=== PATIENT | female | born 1935 | race Caucasian/White ===

== ENCOUNTER 2017-08-21 13:15 | Inpatient (IN) | payer OTHER ==
[~2017-08-21] VITALS: Ht 170.2 cm; Wt 54.1 kg
--- NOTE | 2017-08-21 13:42 | ED MVC/FALL/TRAUMA COMPLAINT ---
History of Present Illness General Chief Complaint: Fall Stated Complaint: FALL WITH RIGHT HIP PAIN Source: patient, EMS Exam Limitations: no limitations Vital Signs & Intake/Output Vital Signs & Intake/Output Vital Signs Date Time Temp Pulse Resp B/P B/P Pulse O2 O2 Flow FiO2 Mean Ox Delivery Rate 08/21 1338 97.8 74 18 172/96 94 Room Air Room Air Triage Note: PT BIBA FROM PLACE OF WORK AFTER TRIP AND FALL. EMS REPORTS THAT PT WAS AT WORK AND TRIPPED OVER SOME CORDS AND FELL TO HER RIGHT HIP AND ARM. PT WAS ASSISTED TO STANDING AND WALKED TO A CHAIR PRIOR TO EMS ARRIVING. DENIES HEAD STRIKE OR LOC. PT ARRIVES A&O, AGITATED, C/O / PAIN TO RIGHT HIP. NO VISIBLE SHORTENING OR ROTATION. +CMS TO EXTREMETY Triage Nurses Notes Reviewed? yes Onset: Abrupt Duration: minute(s): Timing: single episode today Severity: moderate Method of Injury: fall Loss of Consciousness: no loss of consciousness No Modifying Factors: none HPI: 82-year-old female comes into the emergency room with right hip pain after falling at work. Patient reports that she tripped over some wires and came down on her right hip. Pain since then. Unable to ambulate. Brought in for further evaluation. Declined any pain medication here. Denies hitting her head. Denies any injury anywhere else in her body. (Vernon Ribera) Allergies Coded Allergies: cefuroxime (From CEFTIN) (DIARRHEA 08/21/17) clarithromycin (DIARRHEA 08/21/17) Uncoded Allergies: ADHESIVES (RASH 05/29/14) CONTRAST DYE (VOMIT AND HIVES 05/29/14) Reconcile Medications Aspirin (Aspirin*) 81 MG TAB.CHEW 1 TAB PO DAILY HEART HEALTH (Reported) Cholecalciferol (Vitamin D3) 1,000 UNIT TABLET 1 TAB PO DAILY VITAMIN SUPPORT (Reported) Triamterene/Hydrochlorothiazid (Triamterene-Hctz 37.5-25 MG Tb) 37.5 MG-25 MG TABLET 1 TAB PO DAILY HEART (Reported) (Tatiana CERVANTES,Ye Gooden) Past History Medical History Any Pertinent Medical History? none Surgical History Surgical History: non-contributory Psychosocial History Tobacco Use: Current Daily Use Daily Tobacco Use Amount/Type: => 5 Cigarettes daily ETOH Use: denies use Illicit Drug Use: denies illicit drug use Family History Hx Contributory? No (Vernon Ribera) Review of Systems Review of Systems Constitutional: Reports: no symptoms. Eyes: Reports: no symptoms. Ears, Nose, Throat, Mouth: Reports: no symptoms. Respiratory: Reports: no symptoms. Cardiovascular: Reports: no symptoms. Gastrointestinal/Abdominal: Reports: no symptoms. Genitourinary: Reports: no symptoms. Musculoskeletal: Reports: see HPI. Skin: Reports: no symptoms. Neurological/Psychological: Reports: no symptoms. All Other Systems: Reviewed and Negative (Vernon Ribera) Physical Exam Physical Exam General Appearance: no apparent distress, alert, moderate distress, thin Head: atraumatic Eyes: Bilateral: normal appearance. Ears, Nose, Throat, Mouth: moist mucous membrane Neck: normal inspection Respiratory: no respiratory distress Extremities: hematoma to the right upper hip, pain with internal/external rotation of hip, right foot shows symptoms consistent with chronic vascular changes, erythema, slightly delayed cap refill, Neurologic/Psych: awake, alert, oriented x 3 Skin: intact Core Measures ACS in differential dx? No CVA/TIA Diagnosis No Sepsis Present: No Sepsis Focused Exam Completed? No (Vernon Ribera) Progress Differential Diagnosis: abd injury, ext injury, ICH, right intertrochanteric hip fracture, femoral neck fracture Diagnostic Imaging: Viewed by Me: Radiology Read. Discussed w/RAD: Radiology Read. Radiology Impression: PATIENT: ELLEN RDZ PRESENT AGE: 82 PATIENT ACCOUNT NO: [id number] : 33 LOCATION: [facility] ORDERING PHYSICIAN: Vernon AKBAR SERVICE DATE: 08/21/17 EXAM TYPE : RAD - XRY-CHEST XRAY, SINGLE VIEW EXAMINATION: XR PORTABLE CHEST CLINICAL INFORMATION: Preoperative COMPARISON: CT dated 01/16/2017 and radiograph dated TECHNIQUE: AP portable supine view of the chest FINDINGS: Marked chronic pulmonary changes of emphysema are present in both lungs. There is a calcified granuloma in the left midlung. Linear bands of pleural peripheral scarring are present in both upper lobes. No consolidation is identified. Lungs are hyperexpanded. Cardiac silhouette is within normal limits for technique. Calcific atherosclerosis is present in the thoracic area. Pulmonary vasculature is unremarkable. Bones are osteopenic. Degenerative disc disease is present in the thoracic spine. IMPRESSION: Pulmonary emphysema. No acute findings DICTATED BY: Geraldo Clemens MD DATE/TIME DICTATED:08/21/171534 STORE LOSS PREVENTION MANAGER: JOSE DATE/TIME TRANSCRIBED:08/21/171534 CONFIDENTIAL, DO NOT COPY WITHOUT APPROPRIATE AUTHORIZATION. <Electronically signed in Other Vendor System> SIGNED BY: Geraldo Clemens MD 08/21/17 1540, PATIENT: ELLEN RDZ PRESENT AGE: 82 PATIENT ACCOUNT NO: [id number] : 33 LOCATION: [facility] ORDERING PHYSICIAN: Vernon AKBAR SERVICE DATE: 08/21/17 EXAM TYPE: RAD - XRY-AP PELVIS; XRY-HIP 2-3 VIEWS, RIGHT EXAMINATION: XR RIGHT HIP XR PELVIS CLINICAL INFORMATION: Fall. Right hip pain. COMPARISON: CT dated 01/16/2007 TECHNIQUE: AP and crosstable lateral views of the right hip and an AP view of the pelvis. FINDINGS: An intertrochanteric fracture of the right proximal femur is associated with minimal apex anterior angulation and mild apex lateral angulation at the fracture site. Femoral head remains appropriately situated at the acetabulum. No additional fractures are identified. Bones are osteopenic. Right hip joint appears relatively well- preserved. An long stretch of arterial stents are present in the right common and superficial femoral artery distribution. Calcific atherosclerosis is present in the iliac and femoral arteries bilaterally. Left hip joint appears relatively well-preserved. There is degenerative disc disease in the lower lumbar spine. No additional fracture identified in the pelvis. IMPRESSION: Mildly angulated intertrochanteric fracture of the right proximal femur. Osteopenia. DICTATED BY: Geraldo Clemens MD DATE/TIME DICTATED:08/21/171531 STORE LOSS PREVENTION MANAGER:JOSE DATE/TIME TRANSCRIBED:08/21/171531 CONFIDENTIAL, DO NOT COPY WITHOUT APPROPRIATE AUTHORIZATION. <Electronically signed in Other Vendor System> SIGNED BY: Geraldo Clemens MD 08/21/17 153 Initial ED EKG: normal axis (82), normal sinus rhythm, rate (Vernon Ribera) Plan of Care: Orders Procedure Date/time Status Nothing by Mouth 08/22 B Active Patient Data 08/21 1629 Active Misc Message 08/21 1607 Active ED Holding Orders 08/21 1607 Active Admit to inpatient 08/21 1607 Active Vital Signs 08/21 1607 Active Code Status 08/21 1607 Active PARTIAL THROMBOPLASTIN TIME 08/21 1441 Complete PROTHROMBIN TIME 08/21 1441 Complete COMPREHENSIVE METABOLIC PANEL 08/21 1441 Complete CBC WITHOUT DIFFERENTIAL 08/21 1441 Complete EKG 08/21 1441 Active TYPE & SCREEN (NOT X-MATCH) 08/21 1441 Active Intake & Output 08/21 1350 Active Laboratory Tests 08/21/17 1511: Anion Gap 11, Estimated GFR 39 L, BUN/Creatinine Ratio 25.4 H, Glucose 109 H, Calcium 9.7, Total Bilirubin 1.2, AST 35, ALT 38, Alkaline Phosphatase 90, Total Protein 5.9 L, Albumin 3.7, Globulin 2.2, Albumin/Globulin Ratio 1.7, PT 12.2, INR 1.12, APTT 30, CBC w Diff NO MAN DIFF REQ, RBC 5.74 H, MCV 80.7 L, MCH 26.5 L, MCHC 32.8 L, RDW 20.2 H, MPV 8.3, Gran % 86.2 H, Lymphocytes % 5.6 L, Monocytes % 7.3, Eosinophils % 0.6, Basophils % 0.3, Absolute Granulocytes 10.7 H, Absolute Lymphocytes 0.7 L, Absolute Monocytes 0.9 H, Absolute Eosinophils 0.1, Absolute Basophils 0 (Tatiana CERVANTES,Ye Gooden) Departure Departure Disposition: STILL A PATIENT Condition: Stable Clinical Impression Primary Impression: Intertrochanteric fracture of right hip Referrals: Silvano Mcgee MD (PCP/Family) Departure Forms: Customer Survey General Discharge Information Admission Note Spoke With: Maggy Lawrence MD Documentation of Exam: Documentation of any treatments & extenuating circumstances including Concerns Regarding Discharge (functional status, medication knowledge or non-compliance, living conditions, etc.) that warrant an admission rather than observation: Patient will require IV pain control. Surgery. Nonweightbearing. Short-term rehabilitation. PT consult. (Vernon Ribera) PA/[employer] COUNSELOR Co-Sign Statement Statement: ED Attending supervision documentation- [X] I saw and evaluated the patient. I have also reviewed all the pertinent lab results and diagnostic results. I agree with the findings and the plan of care as documented in the PA's/[employer] COUNSELOR's documentation. Patient presents for evaluation of right hip pain status post fall. Physical examination reveals tenderness of the right hip with internal maxilla rotation, the right lower extremity is neurovascularly intact distally. [] I have reviewed the ED Record and agree with the PA's/[employer] GUID[employer] COUNSELOR's documentation. [] Additions or exceptions (if any) to the PAs/[employer] GUID[employer] COUNSELOR's note and plan are summarized below: [] (Tatiana CERVANTES,Ye Gooden)
[2017-08-21] MEDS ORDERED: ASPIRIN81 M4 PO (15:03)
[2017-08-21] MEDS ORDERED: TRIAMTERENE-HC1 EAC1 PO (15:03)
[2017-08-21] MEDS ORDERED: VITAMIN D31000 UNI2 PO (15:04)
[2017-08-21 15:33] LABS: ABSOLUTE BASOPHIL COUNT 0 /CUMM (0.0-0.2); ABSOLUTE EOSINOPHIL COUNT 0.1 /CUMM (0.0-0.7); ABSOLUTE GRANULOCYTE CT 10.7 /CUMM (1.4-6.5); ABSOLUTE LYMPH COUNT 0.7 /CUMM (1.2-3.4); ABSOLUTE MONOCYTE COUNT 0.9 /CUMM (0.10-0.60); BASOPHIL % 0.3 % (0.0-2.0); EOSINOPHIL % 0.6 % (0-5); HEMATOCRIT 46.3 % (37-47); MEAN CORPUSCULAR HGB 26.5 PG (27.0-31.0); MEAN CORPUSCULAR HGB CONC 32.8 G/DL (33.0-37.0); MEAN CORPUSCULAR VOLUME 80.7 FL (81.0-99.0); MEAN PLATELET VOLUME 8.3 FL (7.4-10.4); PLATELET COUNT 243 /CUMM (130-400); RBC DISTRIBUTION WIDTH 20.2 % (11.5-14.5); RED BLOOD CELL CT 5.74 /CUMM (4.20-5.40); WHITE BLOOD CELL COUNT 12.4 /CUMM (4.8-10.8)
--- NOTE | 2017-08-21 15:39 | RADIOLOGY REPORT ---
EXAMINATION: XR RIGHT HIP XR PELVIS CLINICAL INFORMATION: Fall. Right hip pain. COMPARISON: CT dated 01/16/2007 TECHNIQUE: AP and crosstable lateral views of the right hip and an AP view of the pelvis. FINDINGS: An intertrochanteric fracture of the right proximal femur is associated with minimal apex anterior angulation and mild apex lateral angulation at the fracture site. Femoral head remains appropriately situated at the acetabulum. No additional fractures are identified. Bones are osteopenic. Right hip joint appears relatively well-preserved. An long stretch of arterial stents are present in the right common and superficial femoral artery distribution. Calcific atherosclerosis is present in the iliac and femoral arteries bilaterally. Left hip joint appears relatively well-preserved. There is degenerative disc disease in the lower lumbar spine. No additional fracture identified in the pelvis. IMPRESSION: Mildly angulated intertrochanteric fracture of the right proximal femur. Osteopenia.
--- NOTE | 2017-08-21 15:40 | RADIOLOGY REPORT ---
EXAMINATION: XR PORTABLE CHEST CLINICAL INFORMATION: Preoperative COMPARISON: CT dated 01/16/2017 and radiograph dated 07/31/2006 TECHNIQUE: AP portable supine view of the chest FINDINGS: Marked chronic pulmonary changes of emphysema are present in both lungs. There is a calcified granuloma in the left midlung. Linear bands of pleural peripheral scarring are present in both upper lobes. No consolidation is identified. Lungs are hyperexpanded. Cardiac silhouette is within normal limits for technique. Calcific atherosclerosis is present in the thoracic area. Pulmonary vasculature is unremarkable. Bones are osteopenic. Degenerative disc disease is present in the thoracic spine. IMPRESSION: Pulmonary emphysema. No acute findings
[2017-08-21 15:41] LABS: GRANULOCYTE % 86.2 % (42.2-75.2)
[2017-08-21 15:54] LABS: PT 12.2 SEC (9.4-12.5); PTT 30 SEC (25-37)
--- NOTE | 2017-08-21 16:52 | History & Physical ---
Gulshan Gonzalez MD 08/21/17 9295: General Information and HPI MD Statement: I have seen and personally examined ELLEN RDZ and documented this H&P. The patient is a 82 year old F who presented with a patient stated chief complaint of fall and RLE pain. Source of Information: patient, old records Exam Limitations: no limitations History of Present Illness: 82 year old female with past medical history significant for 50+ pack years of smoking (current), severe pulmonary hypertension diagnosed on echocardiogram in 2010, emphysema, hypertension, and peripheral vascular disease on aspirin s/p right femoral stents who was brought in by ambulance after a mechanical fall at work. She reportedly tripped over some electrical cables on the floor. She reports falling onto her bottom and right side and elbow. She denied any head trauma or loss of consciousness. She tried to stand up but had excruciating pain in her proximal anterior right thigh. She is asking about discharge planning and wants to go home. She states her motivation for going home is that she has to take care of her handicapped son and dogs, although he reportedly works and is able to cook for himself. She otherwise has no complaints and review of systems in negative. She currently smokes 1/2-3/4 ppd but denies cough or exertional dyspnea. She is active and works on her feet, can walk for prolonged period of time on a flat surface carrying things without exertional dyspnea or chest pain but states she never has to go up more than three stairs but doesn't think she has any significant limitations in terms of exercise tolerance. In the ED, she had pelvic and hip x-rays demonstrating a right proximal angulated intertrochanteric femur fracture. She denied any pain meds. Orthopedic surgery was consulted from the ED and she was admitted to general medicine floor for a right femur fracture. Allergies/Medications Home Med list Aspirin (Aspirin*) 81 MG TAB.CHEW 1 TAB PO DAILY HEART HEALTH (Reported) Cholecalciferol (Vitamin D3) 1,000 UNIT TABLET 1 TAB PO DAILY VITAMIN SUPPORT (Reported) Triamterene/Hydrochlorothiazid (Triamterene-Hctz 37.5-25 MG Tb) 37.5 MG-25 MG TABLET 1 TAB PO DAILY HEART (Reported) Compliance With Home Meds: GOOD Past History Medical History Cardiovascular: hypertension, PVD Respiratory: COPD, emphysema, pulmonary hypertension Surgical History Surgical History: right femoral artery stents Past Family/Social History Family History Relations & Conditions if any *No pertinent family history Relation not specified Psychosocial History Smoking Status: Current Everyday Smoker ETOH Use: denies use Illicit Drug Use: denies illicit drug use Functional Ability ADLs Independent: dressing, eating, toileting, bathing. Ambulation: independent IADLs Independent: shopping, housework, finances, food prep, telephone, transportation , medication admin. Review of Systems Review of Systems Constitutional: Reports: no symptoms. EENTM: Reports: no symptoms. Cardiovascular: Reports: no symptoms. Respiratory: Reports: no symptoms. GI: Reports: no symptoms. Genitourinary: Reports: no symptoms. Musculoskeletal: Reports: no symptoms. Skin: Reports: no symptoms. Neurological/Psychological: Reports: no symptoms. Hematologic/Endocrine: Reports: no symptoms. Immunologic/Allergic: Reports: no symptoms. All Other Systems: Reviewed and Negative Exam & Diagnostic Data Last 24 Hrs of Vital Signs/I&O Vital Signs Date Time Temp Pulse Resp B/P B/P Pulse O2 O2 Flow FiO2 Mean Ox Delivery Rate 08/21 1910 98.0 101 20 124/74 91 Room Air 08/21 1739 97.5 92 18 139/73 94 Room Air Room Air 08/21 1338 97.8 74 18 172/96 94 Room Air Room Air Intake & Output 08/21 1600 08/21 0800 08/21 0000 Intake Total Output Total Balance Number 1 Bowel Movements Patient 49.895 kg Weight Weight Estimated Measurement Method Physical Exam General Appearance Alert, Oriented X3, Cooperative, No Acute Distress Cardiovascular Regular Rate, Normal S1, Normal S2, high pitched 2/6 murmur heard best LSB Lungs Clear to Auscultation, Normal Air Movement Abdomen Normal Bowel Sounds, Soft, No Tenderness, No Masses Extremities No Clubbing, No Cyanosis, No Edema, Normal Pulses, RLE shortened and externally rotated, tender to proximal thigh without visible ecchymosis and minimal swelling Last 24 Hrs of Labs/Jesus: Laboratory Tests 08/21/17 1511: Anion Gap 11, Estimated GFR 39 L, BUN/Creatinine Ratio 25.4 H, Glucose 109 H, Hemoglobin A1c Pending, Calcium 9.7, Total Bilirubin 1.2, AST 35, ALT 38, Alkaline Phosphatase 90, Total Protein 5.9 L, Albumin 3.7, Globulin 2.2, Albumin/Globulin Ratio 1.7, Triglycerides 219 H, Cholesterol 202 H, LDL Cholesterol, Calc 117, HDL Cholesterol 42, Cholesterol/HDL Ratio 5 H, PT 12.2, INR 1.12, APTT 30, CBC w Diff NO MAN DIFF REQ, RBC 5.74 H, MCV 80.7 L, MCH 26.5 L, MCHC 32.8 L, RDW 20.2 H, MPV 8.3, Gran % 86.2 H, Lymphocytes % 5.6 L, Monocytes % 7.3, Eosinophils % 0.6, Basophils % 0.3, Absolute Granulocytes 10.7 H, Absolute Lymphocytes 0.7 L, Absolute Monocytes 0.9 H, Absolute Eosinophils 0.1, Absolute Basophils 0 Microbiology 08/22 2035 URINE ROUT: Urine Culture - COLB Diagnostic Data EKG Results sinus rhythm with right bundle branch block CXR Results Marked chronic pulmonary changes of emphysema are present in both lungs. There is a calcified granuloma in the left midlung. Linear bands of pleural peripheral scarring are present in both upper lobes. No consolidation is identified. Lungs are hyperexpanded. Cardiac silhouette is within normal limits for technique. Calcific atherosclerosis is present in the thoracic area. Pulmonary vasculature is unremarkable. Bones are osteopenic. Degenerative disc disease is present in the thoracic spine. Other Results hip and pelvic x-ray An intertrochanteric fracture of the right proximal femur is associated with minimal apex anterior angulation and mild apex lateral angulation at the fracture site. Femoral head remains appropriately situated at the acetabulum. No additional fractures are identified. Bones are osteopenic. Right hip joint appears relatively well-preserved. An long stretch of arterial stents are present in the right common and superficial femoral artery distribution. Calcific atherosclerosis is present in the iliac and femoral arteries bilaterally. Left hip joint appears relatively well-preserved. There is degenerative disc disease in the lower lumbar spine. No additional fracture identified in the pelvis. Echocardiogram 2011 FINDINGS Left Ventricle Normal size left ventricle. Left ventricular wall thickness at upper limits of normal. Normal left ventricular ejection fraction visually estimated at >60 %. Abnormal relaxation filling pattern of the left ventricle for age (stage 1 diastolic dysfunction). Right Ventricle Mild right ventricular dilatation. Right Atrium Normal right atrial size. Left Atrium Normal left atrial size. Mitral Valve Mild thickening/calcification of the anterior mitral valve leaflet. Mild thickening/calcification of the posterior mitral valve leaflet. Mild mitral annular calcification. Mild mitral regurgitation. Aortic Valve Mild f ocal thickening of the aortic valve cusps. No aortic stenosis. No aortic regurgitation. Tricuspid Valve Tricuspid valve is normal in structure and function. Moderate tricuspid regurgitation. Right ventricular systolic pressure estimated to be elevated at >60 mmHg. Severe pulmonary hypertension. Pulmonic Valve Pulmonic valve not well visualized, grossly normal. Trace pulmonic regurgitation. Pericardium No pericardial or pleural effusion. Great Vessels Normal size aortic root. CONCLUSIONS Left ventricular wall thickness at upper limits of normal. Normal left ventricular ejection fraction visually estimated at >60 Abnormal relaxation filling pattern of the left ventricle for age (stage 1 diastolic dysfunction). Mild thickening/calcification of the anterior mitral valve leaflet. Mild thickening/calcification of the posterior mitral valve leaflet. Mild mitral annular calcification. Mild f ocal thickening of the aortic valve cusps. Moderate tricuspid regurgitation. Right ventricular systolic pressure estimated to be elevated at >60 mmHg. Severe pulmonary hypertension. Assessment/Plan Assessment: 82 year old female with past medical history significant for 50+ pack years of smoking (current), severe pulmonary hypertension diagnosed on echocardiogram in 2010, emphysema, hypertension, CKD Stage IIIA, and peripheral vascular disease on aspirin s/p right femoral stents who was brought in by ambulance after a mechanical fall at work and sustained a proximal right femur fracture. Right femur fracture: Tylenol prn for analgesia Orthopedic surgery consultation Cardiology evaluation for preoperative risk stratification RCRI of 0, low risk, reportedly normal exercise tolerance Type and screen No anemia, H+H 15.2/46.3, WBC 12.4 probably stress/reactive from trauma NPO after midnight, D5-1/2 NS @ 75cc/hr Pulmonary HTN: Likely secondary to smoking and emphysema Chest x-ray shows hyperinflation Echo 2010 Stage I diastolic dysfunction, LVEF >60%, Moderate tricuspid regurgitation. Right ventricular systolic pressure estimated to be elevated at >60mmHg. Severe pulmonary hypertension. Mild RV dilation Smoking cessation and nicotine replacement therapy HTN: Continue triamterene/HCTZ PVD with right femoral stents: Aspirin on hold Add atorvastatin NPO after midnight DVT ppx-heparin subcutaneous and ALPs Full code As Ranked By This Provider Problem List: 1. Intertrochanteric fracture of right hip Core Measures/Misc (11/26) Acute Coronary Syndrome ACS Diagnosis: No Congestive Heart Failure Congestive Heart Failure Diagnosis No Cerebrovascular Accident CVA/TIA Diagnosis: No VTE (View Protocol) VTE Risk Factors Age>40 No Mechanical VTE Prophylaxis d/t N/A MechProphylax Ordered No VTE Pharm Prophylaxis d/t NA PharmProphylax ordered Sepsis (View protocol) Sepsis Present: No If YES complete Sepsis Event Note If YES complete Sepsis Event Note Dionte Schaeffer MD 08/21/17 1736: General Information and HPI Allergies/Medications Allergies: Coded Allergies: adhesive (RASH 08/21/17) cefuroxime (From CEFTIN) (DIARRHEA 08/21/17) clarithromycin (DIARRHEA 08/21/17) Uncoded Allergies: CONTRAST DYE (VOMIT AND HIVES 05/29/14) Core Measures/Misc (11/26) Sepsis (View protocol) If YES complete Sepsis Event Note If YES complete Sepsis Event Note Resident Review Statement Other Findings: History of present illness 82-year-old woman with past medical history of severe pulmonary hypertension, hypertension, 50+ pack year tobacco use, emphysema, and peripheral vascular disease status post stenting brought in by ambulance after sustaining a mechanical fall. Patient reports she was walking in the ambrocio at work when she suddenly fell forward after tripping on some cables that were lying across the floor. She fell onto her right side landing on her "bottom" and right elbow when she immediately felt pain in her right hip. She got up immediately and was helped to a chair when EMS was contacted. She denies hitting her head or losing consciousness. Recently she states that she has mild pain to her right hip and is asking "how long will this take?" and if she can go home. She otherwise feels well and has no complaints other than mild pain to her right elbow where a small scrap is seen. Social history Patient reports smoking tobacco 1/2 - 1 ppd for 50+ years. She denies using alcohol. 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 She denies episodes of shortness of breath/chest pain at rest or with exertion. She does not know how many flights stairs she can climb up and sleeps with only one pillow behind her head at night. Review of systems She otherwise denies any headache, fever, chills, chest pain, palpitations, shortness breath, cough, nausea, vomiting, diarrhea, constipation, urinary complaints. Objective Vitals Temp 97.8, HR 74, RR 18, BP 172/96, O2 94% on room air Physical Exam -General: Well-developed, thin elderly woman in no acute distress -HEENT: NCAT, Deven, EOMI, anicteric sclera, moist mucous members -Neck: Supple, no JVP, trachea midline -Cardio: Normal S1/S2 without murmurs/gallops/rubs; regular rate and rhythm -Pulm: Scant left lower lobe crackles -Abdomen: Soft, nontender, nondistended, bowel sounds intact -Neuro: Awake and alert, cranial nerves II through XII grossly intact -Extremities: Mild right hip/thigh tenderness without deformity, hematoma, or overlying ecchymosis, normal pulses, no edema Labs / Imaging / Studies -CBC: WBC 12.4, hemoglobin 15.2, hematocrit 46.3, platelet 240 -BMP: Sodium 138, potassium 3.8, chloride 101, CO2 26, BUN 33, creatinine 1.3, anion gap 11, glucose 109 -LFT: Within normal limits -Misc: INR 1.12 -Pelvis / Right femur X-ray: mild angulated intertrochanteric fracture of proximal right femur -CXR: emphysema -EKG: NSR with RBBB and left atrial abnormality Assessment 82 year old woman with multiple medical problems significant for 50+ pack year tobacco use, emphysema, hypertension, and severe pulmonary hypertension on echo (2010) brought in by ambulance after a mechanical fall. Patient currently feels well and reports only mild pain to her right thigh and is in fact requesting to go home. Vital signs are significant for an elevated systolic blood pressure to 172. Physical exam demonstrates scant left lower lobe crackles, flat neck veins, no murmurs, no edema, and mild tenderness to right hip/thigh without deformity, hematoma, or ecchymosis. Labs including CBC, hepatic function panel, and serum chemistry are significant for WBC 12.4, BUN/ creatinine 33/1.3. Chest x-ray demonstrated emphysema, pelvis/right hip x-ray demonstrated a mildly angulated proximal right intertrochanteric fracture. EKG demonstrated normal sinus rhythm with right bundle branch block and left atrial abnormality. Clinically patient appears to have suffered a mechanical fall secondary to tripping over cables resulting in injury to her right femur without any associated head trauma or other injuries. She denies a history of any pulmonary disease or ongoing evaluation for her pulmonary hypertension which she was not aware of. She is active and is on her feet most of the day and capable of all ADLs/IADLs. She currently works and takes care of her adult son whom has special needs. She does not know how many flights of stairs she can climb but states that she can walk as far she wants. She denies having to stop to catch her breath or any episodes of chest pain. EKG demonstrates a right bundle branch block probably secondary to her severe pulmonary hypertension. Patient is to be admitted to the general medicine floor and kept n.p.o. overnight for possible surgical fixation of her right hip fracture tomorrow. Orthopedics and cardiology consults are to be placed for surgical evaluation and preoperative risk stratification respectively. Aspirin is to be held in anticipation of surgery and type and cross sent. Patient's calculated revised cardiac risk index score is 0 giving her a 0.4% chance of a major perioperative cardiovascular event. ASCVD cannot be calculated given her age however given her history of peripheral vascular disease she would benefit from a statin. Problem List -Right intertrochanteric femur fracture -Mechanical fall -Leukocytosis, most likely reactive -CKD -Hypertension -Emphysema -Severe pulmonary hypertension -Peripheral vascular disease status post stenting -Tobacco user, 1/2 - 1 ppd x 50 yrs Plan -Admit to general medicine -RCRI: 0, 0.4% chance of a perioperative cardiovascular event -Non-weight bearing for now -Monitor blood pressure -D5 1/2 NS @ 50 mL/hr while NPO -Nicotine 14 mg patch -Start atorvastatin 40 mg PO Daily -Continue triamterene/hydrochlorothiazide -Hold aspirin for now, restart post-operatively -Type & Screen -Check lipid panel, hbA1c -Consult with orthopedics for hip fracture -Consult with cardiology in AM for preoperative risk stratification -Pain control with acetaminophen -NPO overnight for OR in AM -DVT PPx with subcutaneous heparin -FULL CODE Maggy Lawrence MD 08/21/17 2326: Core Measures/Misc (11/26) Sepsis (View protocol) If YES complete Sepsis Event Note If YES complete Sepsis Event Note Attending MD Review Statement Attending Statement Attending MD Statement: examined this patient, discuss w/resident/PA/VOCATIONAL NURSE LVN, agreed w/resident/PA/VOCATIONAL NURSE LVN, reviewed EMR data (avail) Attending Assessment/Plan: 82F PMH 50+ pack years of smoking (current), severe pulmonary hypertension diagnosed on echocardiogram in 2010, emphysema, hypertension, and peripheral vascular disease on aspirin s/p right femoral stents presenting with mechanical fall at work and right hip pain. Tripped on some wires, no symptoms prior to or after fall, did not hit head or lose consciousness. Feels well now, able to move leg and only with mild pain that becomes severe with internal or external rotation. No other complaints. Very active and without exertional dyspnea or chest pain when walking. Imaging reveals right hip fracture. 1. Fall, initial 2. Closed right interotrochanteric non-displaced hip fracture 3. PVD 4. Severe pulmonary hypertension Plan - Admit to general medicine - Cardiology and orthopedic consults - Pain control - Continue home medications - DVT PPx
--- NOTE | 2017-08-21 17:53 | Cons- Orthopedic ---
General Information and HPI Consulting Request Date of Consult: 08/21/17 Requested By: Maggy Lawrence MD Reason for Consult: right intertroch fracture Source of Information: patient Exam Limitations: no limitations History of Present Illness: pt had a mechanical fall while at work today, states that she tripped over cords that were on the floor. She was unable to get up and walk so a ambulence was called and brought her to the [place] ED. Upon arrival she had a R hip x-ray which shows a right intertroch fracture. She has denied pain medication, states she is not in pain at rest. Denies paresthesias. She denies any other painful injuries, denies LOC, denies hitting her head Denies CP/ SOB Allergies/Medications Allergies: Coded Allergies: adhesive (RASH 08/21/17) cefuroxime (From CEFTIN) (DIARRHEA 08/21/17) clarithromycin (DIARRHEA 08/21/17) Uncoded Allergies: CONTRAST DYE (VOMIT AND HIVES 05/29/14) Home Med List: Aspirin (Aspirin*) 81 MG TAB.CHEW 1 TAB PO DAILY HEART HEALTH (Reported) Cholecalciferol (Vitamin D3) 1,000 UNIT TABLET 1 TAB PO DAILY VITAMIN SUPPORT (Reported) Triamterene/Hydrochlorothiazid (Triamterene-Hctz 37.5-25 MG Tb) 37.5 MG-25 MG TABLET 1 TAB PO DAILY HEART (Reported) Past History Medical History Cardiovascular: hypertension, PVD Surgical History Pertinent Surgical History: none Psychosocial History Smoking Status: Current Everyday Smoker ETOH Use: denies use Illicit Drug Use: denies illicit drug use Exam & Diagnostic Data Vital Signs and I&O Vital Signs Date Time Temp Pulse Resp B/P B/P Pulse O2 O2 Flow FiO2 Mean Ox Delivery Rate 08/21 1739 97.5 92 18 139/73 94 Room Air Room Air 08/21 1338 97.8 74 18 172/96 94 Room Air Room Air Intake & Output 08/21 1600 08/21 0800 08/21 0000 08/20 1600 08/20 0800 08/20 0000 Intake Total Output Total Balance Number 1 Bowel Movements Patient 110 lb Weight Weight Estimated Measurement Method Physical Exam: gen- NAD, AAx3 resp- clear cardiac-RRR abd- ND, +BS, soft NT EXT-- right hip tender with no ecchymosis, thigh is soft, distal sensory and motor function intact. right leg shortened and internally rotated. 2+ femoral pulse Last 24 Hours of Labs: Laboratory Tests 08/21 1511 Chemistry Sodium (137 - 145 mmol/L) 138 Potassium (3.5 - 5.1 mmol/L) 3.8 Chloride (98 - 107 mmol/L) 101 Carbon Dioxide (22 - 30 mmol/L) 26 Anion Gap (5 - 16) 11 BUN (7 - 17 mg/dL) 33 H Creatinine (0.5 - 1.0 mg/dL) 1.3 H Estimated GFR (>60 ml/min) 39 L BUN/Creatinine Ratio (7 - 25 %) 25.4 H Glucose (65 - 99 mg/dL) 109 H Calcium (8.4 - 10.2 mg/dL) 9.7 Total Bilirubin (0.2 - 1.3 mg/dL) 1.2 AST (14 - 36 U/L) 35 ALT (9 - 52 U/L) 38 Alkaline Phosphatase (<127 U/L) 90 Total Protein (6.3 - 8.2 g/dL) 5.9 L Albumin (3.5 - 5.0 g/dL) 3.7 Globulin (1.9 - 4.2 gm/dL) 2.2 Albumin/Globulin Ratio (1.1 - 2.2 %) 1.7 Coagulation PT (9.4 - 12.5 SEC) 12.2 INR (0.90 - 1.19) 1.12 APTT (25 - 37 SEC) 30 Hematology CBC w Diff NO MAN DIFF REQ WBC (4.8 - 10.8 /CUMM) 12.4 H RBC (4.20 - 5.40 /CUMM) 5.74 H Hgb (12.0 - 16.0 G/DL) 15.2 Hct (37 - 47 %) 46.3 MCV (81.0 - 99.0 FL) 80.7 L MCH (27.0 - 31.0 PG) 26.5 L MCHC (33.0 - 37.0 G/DL) 32.8 L RDW (11.5 - 14.5 %) 20.2 H Plt Count (130 - 400 /CUMM) 243 MPV (7.4 - 10.4 FL) 8.3 Gran % (42.2 - 75.2 %) 86.2 H Lymphocytes % (20.5 - 51.1 %) 5.6 L Monocytes % (1.7 - 9.3 %) 7.3 Eosinophils % (0 - 5 %) 0.6 Basophils % (0.0 - 2.0 %) 0.3 Absolute Granulocytes (1.4 - 6.5 /CUMM) 10.7 H Absolute Lymphocytes (1.2 - 3.4 /CUMM) 0.7 L Absolute Monocytes (0.10 - 0.60 /CUMM) 0.9 H Absolute Eosinophils (0.0 - 0.7 /CUMM) 0.1 Absolute Basophils (0.0 - 0.2 /CUMM) 0 Imaging Results: EXAM TYPE: RAD - XRY-AP PELVIS; XRY-HIP 2-3 VIEWS, RIGHT EXAMINATION: XR RIGHT HIP XR PELVIS CLINICAL INFORMATION: Fall. Right hip pain. COMPARISON: CT dated 01/16/2007 TECHNIQUE: AP and crosstable lateral views of the right hip and an AP view of the pelvis. FINDINGS: An intertrochanteric fracture of the right proximal femur is associated with minimal apex anterior angulation and mild apex lateral angulation at the fracture site. Femoral head remains appropriately situated at the acetabulum. No additional fractures are identified. Bones are osteopenic. Right hip joint appears relatively well-preserved. An long stretch of arterial stents are present in the right common and superficial femoral artery distribution. Calcific atherosclerosis is present in the iliac and femoral arteries bilaterally. Left hip joint appears relatively well-preserved. There is degenerative disc disease in the lower lumbar spine. No additional fracture identified in the pelvis. IMPRESSION: Mildly angulated intertrochanteric fracture of the right proximal femur. Osteopenia. DICTATED BY: Geraldo Clemens MD DATE/TIME DICTATED:08/21/171531 JINRIKSHA DRIVER:JOSE DATE/TIME TRANSCRIBED:08/21/171531 Assessment/Plan Assessment/Plan 82yo F SP fall resulting in R mildly angulated intertroch fracture. Currently stable Plan for OR tomorrow with Dr Nguyen pending medical clearence type and screen nicotine patch NPo after midnight hernandez IVF PRN pain meds dvt ppx- alps Consult Acknowledgment - Thank you for your consult request.
[2017-08-21 19:10] VITALS: BP 124/74
[2017-08-21 21:53] VITALS: BP 102/68
[2017-08-22 05:41] VITALS: BP 100/50
--- NOTE | 2017-08-22 07:31 | PN- Housestaff ---
Lisa CERVANTES,Gulshan 08/22/17 0731: Subjective Follow-up For: right femur fracture Subjective: patient is comfortable at rest, pain with movement afebrile with hernandez catheter npo awaiting surgery no new complaints Review of Systems Constitutional: Reports: see HPI. Objective Last 24 Hrs of Vital Signs/I&O Vital Signs Date Time Temp Pulse Resp B/P B/P Pulse O2 O2 Flow FiO2 Mean Ox Delivery Rate 08/22 0906 95 98/60 08/22 0800 Room Air 08/22 0541 97.6 90 18 100/50 93 Room Air 08/21 2153 97.7 97 18 102/68 91 Room Air 08/21 1910 98.0 101 20 124/74 91 Room Air 08/21 1739 97.5 92 18 139/73 94 Room Air Room Air 08/21 1338 97.8 74 18 172/96 94 Room Air Room Air Intake & Output 08/22 1600 08/22 0800 08/22 0000 Intake Total 300 80 Output Total 200 Balance 300 -120 Intake, IV 300 30 Intake, Oral 0 50 Output, Urine 200 Patient 56.472 kg 58.967 kg Weight Weight Bed scale Reported by Patient Measurement Method Physical Exam General Appearance: Alert, Oriented X3, Cooperative, No Acute Distress Cardiovascular: Regular Rate, Normal S1, Normal S2, 2/6 systolic murmur LLSB Lungs: Clear to Auscultation, Normal Air Movement Abdomen: Normal Bowel Sounds, Soft, No Tenderness, No Masses Extremities: No Clubbing, No Cyanosis, No Edema, RLE shortened and externally rotated Current Medications: Current Medications Sig/Hany Start time Last Medication Dose Route Stop Time Status Admin Acetaminophen 650 MG Q6P PRN 08/21 1830 AC 08/21 PO 2156 Atorvastatin Calcium 40 MG 1700 08/22 1700 AC PO Cholecalciferol 1,000 IU DAILY 08/22 0900 08/22 PO 0914 Dextrose/Sodium 1,000 ML Q20H 08/22 0000 AC 08/21 Chloride IV 08/22 1959 215 Heparin Sodium 5,000 UNIT Q8 08/21 2200 AC 08/21 (Porcine) SC 2152 Nicotine 0 .STK-MED ONE 08/21 1841 [place] TOP Nicotine 14 MG DAILY 08/21 1736 08/22 TOP 0910 Patient Medication 1 ED ONE ONE 08/22 1115 DC 08/22 Teaching ED 08/22 1116 1137 Triamterene/HCTZ 1 CAP DAILY 08/22 0900 AC PO Last 24 Hrs of Lab/Jesus Results Last 24 Hrs of Labs/Mics: Laboratory Tests 08/22/17 0714: Anion Gap 9, Estimated GFR 43 L, BUN/Creatinine Ratio 22.5, Magnesium 1.6, CBC w Diff NO MAN DIFF REQ, RBC 4.97, MCV 81.1, MCH 27.1, MCHC 33.4, RDW 20.4 H, MPV 9.1, Gran % 81.4 H, Lymphocytes % 7.9 L, Monocytes % 10.0 H, Eosinophils % 0.6, Basophils % 0.1, Absolute Granulocytes 8.7 H, Absolute Lymphocytes 0.8 L, Absolute Monocytes 1.1 H, Absolute Eosinophils 0.1, Absolute Basophils 0 08/21/17 1511: Anion Gap 11, Estimated GFR 39 L, BUN/Creatinine Ratio 25.4 H, Glucose 109 H, Hemoglobin A1c 5.2, Calcium 9.7, Total Bilirubin 1.2, AST 35, ALT 38, Alkaline Phosphatase 90, Total Protein 5.9 L, Albumin 3.7, Globulin 2.2, Albumin/ Globulin Ratio 1.7, Triglycerides 219 H, Cholesterol 202 H, LDL Cholesterol, Calc 117, HDL Cholesterol 42, Cholesterol/HDL Ratio 5 H, PT 12.2, INR 1.12, APTT 30, CBC w Diff NO MAN DIFF REQ, RBC 5.74 H, MCV 80.7 L, MCH 26.5 L, MCHC 32.8 L, RDW 20.2 H, MPV 8.3, Gran % 86.2 H, Lymphocytes % 5.6 L, Monocytes % 7.3, Eosinophils % 0.6, Basophils % 0.3, Absolute Granulocytes 10.7 H, Absolute Lymphocytes 0.7 L, Absolute Monocytes 0.9 H, Absolute Eosinophils 0.1, Absolute Basophils 0 Microbiology 08/21 2149 URINE ROUT: Urine Culture - RES Assessment/Plan Assessment: 82 year old female with past medical history significant for 50+ pack years of smoking (current), severe pulmonary hypertension diagnosed on echocardiogram in 2010, emphysema, hypertension, CKD Stage IIIA, and peripheral vascular disease on aspirin s/p right femoral stents who was brought in by ambulance after a mechanical fall at work and sustained a proximal right femur fracture. Right femur fracture: Tylenol prn for analgesia Orthopedic surgery consultation Cardiology evaluation for preoperative risk stratification Although RCRI of 0, patient is not very physically active, has comorbidites of PVD, CKD, severe pulmonary hypertension with TR and mild RV dilatation, has never been evaluated with stress testing, last echo 2010 and is at higher perioperative risk than RCRI calculated risk Follow up cardiology recommendations Check transthoracic echocardiogram Monitor post operative on telemetry for 24 hours and troponin checks Type and screen No anemia, H+H 15.2/46.3, WBC 12.4 probably stress/reactive from trauma NPO after midnight, D5-1/2 NS @ 75cc/hr Pulmonary HTN: Likely secondary to smoking and emphysema Chest x-ray shows hyperinflation Echo 2010 Stage I diastolic dysfunction, LVEF >60%, Moderate tricuspid regurgitation. Right ventricular systolic pressure estimated to be elevated at >60mmHg. Severe pulmonary hypertension. Mild RV dilation Smoking cessation and nicotine replacement therapy HTN: Triamterene/HCTZ was held this morning for SBP in the 90s PVD with right femoral stents: Aspirin on hold for OR Add atorvastatin NPO pending surgical repair of right femur fracture DVT ppx-heparin subcutaneous and ALPs Full code Problem List: 1. Intertrochanteric fracture of right hip Pain Ratin Pain Location: right thigh Pain Goal: Pain 4 or less Pain Plan: tylenol prn Tomorrow's Labs & Rationales: cbc, bep, troponin Nelson CERVANTES,Talon 08/22/17 1016: Attending Review Statement Attending Statement Attending Statement: examined this patient, discuss w/resident/PA/RADIO INTERFERENCE INVESTIGATOR, agreed w/resident/PA/RADIO INTERFERENCE INVESTIGATOR, reviewed EMR data (avail), discussed with nursing, discussed with case mgmt, amended to note Attending Assessment/Plan: Patient seen and examined. No issues overnight reported by nursing staff. Remains afebrile and hemodynamically stable. Resting comfortably and not in any acute distress. Reports that right hip pain is controlled with current regimen particularly at rest. She does admit to pain with activity. Denies any pre-existing history of chest pain at rest or with exertion dyspnea on exertion palpitations or leg swelling. She is able to carry out activities of daily living independently without need for assistance. Vital Signs Date Time Temp Pulse Resp B/P B/P Pulse O2 O2 Flow FiO2 Mean Ox Delivery Rate 08/22 0906 95 98/60 08/22 0541 97.6 90 18 100/50 93 Room Air 08/21 2153 97.7 97 18 102/68 91 Room Air 08/21 1910 98.0 101 20 124/74 91 Room Air 08/21 1739 97.5 92 18 139/73 94 Room Air Room Air 08/21 1338 97.8 74 18 172/96 94 Room Air Room Air General appearance: Well-developed and not in any acute distress. HEENT: Anicteric, no pallor, pupils equal and reactive. Neck: Supple with no jugular venous distention. Heart: S1-S2 regular with no audible murmur. Lungs: Adequate and symmetric air entry bilaterally with no added sounds. Abdomen: Nondistended with normal bowel sounds. Soft, nontender with no palpable masses. Extremities: No pedal edema. No cyanosis. Skin: Intact Problems: 1. Right hip fracture; status post mechanical fall. 2. Chronic stage I diastolic heart failure; not decompensated 3. Peripheral arterial disease 4. Chronic obstructive pulmonary disease 5. Hypertension 6. Chronic kidney disease stage III 7. Severe pulmonary hypertension 8. Moderate tricuspid regurgitation Plan: -Patient's underlying comorbidities do not put her a high risk for adverse cardiac events. There is no contraindication to the patient proceeded with the surgery planned for today. -She will need further cardiac workup for her underlying abnormal EKG and valvular heart disease. -Perioperatively will monitor volume status closely with input output, pulmonary examination and daily weights to avoid volume overload given her history of diastolic dysfunction. -Hold her diuretic therapy for now given her borderline blood pressure. May be resumed postoperatively Blood pressure remained stable. -Resume aspirin postoperatively once cleared by the cardiology service in view of her history of peripheral arterial disease. Continue statin therapy. -Bronchodilator therapy with albuterol every 6 hours [id number] postoperatively. -Patient should be referred to the pulmonology service for follow-up in the outpatient setting for pulmonary function testing and optimal management of her COPD as well as further workup of her pulmonary hypertension. with regards to her COPD pulmonary hypertension will suggest severe disease however patient does not give significant history of symptoms and is not on any long-acting ischemic agents or beta agonist.. She will benefit from outpatient PFTs. -Chemical DVT prophylaxis with Lovenox. -Monitor closely for post-op anemia. -PT evaluation post-op. -Continue current pain regimen.
[2017-08-22 08:13] LABS: ABSOLUTE BASOPHIL COUNT 0 /CUMM (0.0-0.2); ABSOLUTE EOSINOPHIL COUNT 0.1 /CUMM (0.0-0.7); ABSOLUTE LYMPH COUNT 0.8 /CUMM (1.2-3.4); ABSOLUTE MONOCYTE COUNT 1.1 /CUMM (0.10-0.60); BASOPHIL % 0.1 % (0.0-2.0)
[2017-08-22 08:34] LABS: ABSOLUTE GRANULOCYTE CT 8.7 /CUMM (1.4-6.5); EOSINOPHIL % 0.6 % (0-5); GRANULOCYTE % 81.4 % (42.2-75.2); MEAN CORPUSCULAR HGB 27.1 PG (27.0-31.0); MEAN CORPUSCULAR HGB CONC 33.4 G/DL (33.0-37.0); MEAN CORPUSCULAR VOLUME 81.1 FL (81.0-99.0); MEAN PLATELET VOLUME 9.1 FL (7.4-10.4); PLATELET COUNT 223 /CUMM (130-400); RBC DISTRIBUTION WIDTH 20.4 % (11.5-14.5); RED BLOOD CELL CT 4.97 /CUMM (4.20-5.40); WHITE BLOOD CELL COUNT 10.7 /CUMM (4.8-10.8)
[2017-08-22 08:39] LABS: HEMATOCRIT 40.3 % (37-47)
[2017-08-22 09:06] VITALS: BP 98/60
--- NOTE | 2017-08-22 12:06 | Cons- Cardiology ---
General Information and HPI Consulting Request Date of Consult: 08/22/17 Requested By: Maggy Lawrence MD Reason for Consult: Cardiac assessment preoperatively Source of Information: patient Exam Limitations: no limitations History of Present Illness: 82 year old female with past medical history significant for 50+ pack years of smoking (current), severe pulmonary hypertension diagnosed on echocardiogram in 2010, emphysema, hypertension, and peripheral vascular disease on aspirin s/p right femoral stents who was brought in by ambulance after a mechanical fall at work. She reportedly tripped over some electrical cables on the floor. She reports falling onto her bottom and right side and elbow. She denied any head trauma or loss of consciousness. She tried to stand up but had excruciating pain in her proximal anterior right thigh. She is asking about discharge planning and wants to go home. She states her motivation for going home is that she has to take care of her handicapped son and dogs, although he reportedly works and is able to cook for himself. She otherwise has no complaints and review of systems in negative. She currently smokes 1/2-3/4 ppd but denies cough or exertional dyspnea. She is active and works on her feet, can walk for prolonged period of time on a flat surface carrying things without exertional dyspnea or chest pain but states she never has to go up more than three stairs but doesn't think she has any significant limitations in terms of exercise tolerance. In the ED, she had pelvic and hip x-rays demonstrating a right proximal angulated intertrochanteric femur fracture. She denied any pain meds. Orthopedic surgery was consulted from the ED and she was admitted to general medicine floor for a right femur fracture. Allergies/Medications Allergies: Coded Allergies: adhesive (RASH 08/21/17) cefuroxime (From CEFTIN) (DIARRHEA 08/21/17) clarithromycin (DIARRHEA 08/21/17) Uncoded Allergies: CONTRAST DYE (VOMIT AND HIVES 05/29/14) Home Med List: Aspirin (Aspirin*) 81 MG TAB.CHEW 1 TAB PO DAILY HEART HEALTH (Reported) Cholecalciferol (Vitamin D3) 1,000 UNIT TABLET 1 TAB PO DAILY VITAMIN SUPPORT (Reported) Triamterene/Hydrochlorothiazid (Triamterene-Hctz 37.5-25 MG Tb) 37.5 MG-25 MG TABLET 1 TAB PO DAILY HEART (Reported) Current Medications: Current Medications Sig/Hany Start time Last Medication Dose Route Stop Time Status Admin Acetaminophen 650 MG Q6P PRN 08/21 1830 AC 08/21 PO 2156 Atorvastatin Calcium 40 MG 1700 08/22 1700 AC PO Cholecalciferol 1,000 IU DAILY 08/22 0900 AC 08/22 PO 0914 Dextrose/Sodium 1,000 ML Q20H 08/22 0000 AC 08/21 Chloride IV 08/22 1959 2153 Heparin Sodium 5,000 UNIT Q8 08/21 2200 AC 08/21 (Porcine) SC 2152 Nicotine 0 .STK-MED ONE 08/21 1841 [place] TOP Nicotine 14 MG DAILY 08/21 1736 08/22 TOP 0910 Patient Medication 1 ED ONE ONE 08/22 1115 DC 08/22 Teaching ED 08/22 1116 1137 Triamterene/HCTZ 1 CAP DAILY 08/22 0900 AC PO Past History Travel History Traveled to [place] past 21 day No Medical History Blood Transfusion Hx: No Neurological: NONE EENT: NONE Cardiovascular: hypertension, PVD Respiratory: COPD, emphysema, pulmonary hypertension Gastrointestinal: NONE Hepatic: NONE Musculoskeletal: osteoporosis Psychiatric: NONE Endocrine: NONE Blood Disorders: NONE Cancer(s): NONE 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 Home Smoking Status: Current Everyday Smoker ETOH Use: denies use Illicit Drug Use: denies illicit drug use Functional Ability ADLs Independent: dressing, eating, toileting, bathing. Ambulation: independent IADLs Independent: shopping, housework, finances, food prep, telephone, transportation , medication admin. Exam & Diagnostic Data Vital Signs and I&O Vital Signs Date Time Temp Pulse Resp B/P B/P Pulse O2 O2 Flow FiO2 Mean Ox Delivery Rate 08/22 0906 95 98/60 08/22 0800 Room Air 08/22 0541 97.6 90 18 100/50 93 Room Air 08/21 2153 97.7 97 18 102/68 91 Room Air 08/21 1910 98.0 101 20 124/74 91 Room Air 08/21 1739 97.5 92 18 139/73 94 Room Air Room Air 08/21 1338 97.8 74 18 172/96 94 Room Air Room Air Intake & Output 08/22 1600 08/22 0800 08/22 0000 08/21 1600 08/21 0800 08/21 0000 Intake Total 300 80 Output Total 200 Balance 300 -120 Intake, IV 300 30 Intake, Oral 0 50 Number 1 Bowel Movements Output, Urine 200 Patient 125 lb 130 lb 110 lb Weight Weight Bed scale Reported by Patient Estimated Measurement Method Physical Exam: General Appearance: well developed/nourished, thin elderly female, alert, awake, oriented Head: normal HEENT: Normal Neck: supple, JVP elevated 2-3 cm at 45, carotid upstrokes normal bilaterally, no masses or thyromegaly Respiratory: chest non-tender, diffuse bilateral rhonchi Cardiovascular: regular rate/rhythm, normal S1, S2, 2/6 systolic murmur left lower sternal border Abdomen: normal bowel sounds, soft, non-tender Extremities: normal inspection, no edema Vascular: Pulses are 2+ and equal bilaterally Neurologic: Grossly normal/nonfocal Labs/Jesus Results: Laboratory Tests 08/22 08/21 0714 1511 Chemistry Sodium (137 - 145 mmol/L) 138 138 Potassium (3.5 - 5.1 mmol/L) 3.7 3.8 Chloride (98 - 107 mmol/L) 105 101 Carbon Dioxide (22 - 30 mmol/L) 24 26 Anion Gap (5 - 16) 9 11 BUN (7 - 17 mg/dL) 27 H 33 H Creatinine (0.5 - 1.0 mg/dL) 1.2 H 1.3 H Estimated GFR (>60 ml/min) 43 L 39 L BUN/Creatinine Ratio (7 - 25 %) 22.5 25.4 H Glucose (65 - 99 mg/dL) 109 H Hemoglobin A1c (4.2 - 5.8 %) 5.2 Calcium (8.4 - 10.2 mg/dL) 9.7 Magnesium (1.6 - 2.3 mg/dL) 1.6 Total Bilirubin (0.2 - 1.3 mg/dL) 1.2 AST (14 - 36 U/L) 35 ALT (9 - 52 U/L) 38 Alkaline Phosphatase (<127 U/L) 90 Total Protein (6.3 - 8.2 g/dL) 5.9 L Albumin (3.5 - 5.0 g/dL) 3.7 Globulin (1.9 - 4.2 gm/dL) 2.2 Albumin/Globulin Ratio (1.1 - 2.2 %) 1.7 Triglycerides (<150 mg/dL) 219 H Cholesterol (<200 MG/DL) 202 H LDL Cholesterol, Calc (65 - 129 mg/dL) 117 HDL Cholesterol (40 - 60 mg/dL) 42 Cholesterol/HDL Ratio (0.00 - 4.23 %) 5 H Coagulation PT (9.4 - 12.5 SEC) 12.2 INR (0.90 - 1.19) 1.12 APTT (25 - 37 SEC) 30 Hematology CBC w Diff NO MAN DIFF REQ NO MAN DIFF REQ WBC (4.8 - 10.8 /CUMM) 10.7 12.4 H RBC (4.20 - 5.40 /CUMM) 4.97 5.74 H Hgb (12.0 - 16.0 G/DL) 13.5 15.2 Hct (37 - 47 %) 40.3 46.3 MCV (81.0 - 99.0 FL) 81.1 80.7 L MCH (27.0 - 31.0 PG) 27.1 26.5 L MCHC (33.0 - 37.0 G/DL) 33.4 32.8 L RDW (11.5 - 14.5 %) 20.4 H 20.2 H Plt Count (130 - 400 /CUMM) 223 243 MPV (7.4 - 10.4 FL) 9.1 8.3 Gran % (42.2 - 75.2 %) 81.4 H 86.2 H Lymphocytes % (20.5 - 51.1 %) 7.9 L 5.6 L Monocytes % (1.7 - 9.3 %) 10.0 H 7.3 Eosinophils % (0 - 5 %) 0.6 0.6 Basophils % (0.0 - 2.0 %) 0.1 0.3 Absolute Granulocytes (1.4 - 6.5 /CUMM) 8.7 H 10.7 H Absolute Lymphocytes (1.2 - 3.4 /CUMM) 0.8 L 0.7 L Absolute Monocytes (0.10 - 0.60 /CUMM) 1.1 H 0.9 H Absolute Eosinophils (0.0 - 0.7 /CUMM) 0.1 0.1 Absolute Basophils (0.0 - 0.2 /CUMM) 0 0 Diagnostic Data EKG Results Sinus rhythm, right bundle branch block, left posterior hemiblock, nonspecific ST-T change CXR Results FINDINGS: Marked chronic pulmonary changes of emphysema are present in both lungs. There is a calcified granuloma in the left midlung. Linear bands of pleural peripheral scarring are present in both upper lobes. No consolidation is identified. Lungs are hyperexpanded. Cardiac silhouette is within normal limits for technique. Calcific atherosclerosis is present in the thoracic area. Pulmonary vasculature is unremarkable. Bones are osteopenic. Degenerative disc disease is present in the thoracic spine. IMPRESSION: Pulmonary emphysema. No acute findings Other Results Echocardiogram 10/27/2010; CONCLUSIONS Left ventricular wall thickness at upper limits of normal. Normal left ventricular ejection fraction visually estimated at >60 Abnormal relaxation filling pattern of the left ventricle for age (stage 1 diastolic dysfunction). Mild thickening/calcification of the anterior mitral valve leaflet. Mild thickening/calcification of the posterior mitral valve leaflet. Mild mitral annular calcification. Mild f ocal thickening of the aortic valve cusps. Moderate tricuspid regurgitation. Right ventricular systolic pressure estimated to be elevated at >60 mmHg. Severe pulmonary hypertension. Assessment/Plan Assessment/Plan Assessment: 1. Right intertrochanteric femur fracture, secondary to mechanical fall 2. Abnormal ECG with multi-fascicular block 3. Probable severe underlying pulmonary disease 4. History of moderate tricuspid insufficiency and severe pulmonary hypertension on echocardiogram 2010 5. History of hypertension 6. Chronic renal insufficiency 7. History of severe peripheral arterial disease with multiple stents right lower extremity arterial system 8. Long-standing tobacco use Recommendations: -Despite the fact that the patient has reasonable activity levels with no significant symptoms, reportedly, I suspect that her risk is higher than suspected due to multiple factors (age, long-standing tobacco history, underlying significant pulmonary disease with severe pulmonary hypertension, chronic renal insufficiency, severe diffuse peripheral vascular disease with multiple interventions in the past, abnormal ECG, etc.). -I had an extended discussion with the patient. Patient understands the entailed risks and wishes to proceed with surgery for the hip fracture. I suspect that,, in spite of her elevated risk, she should tolerate the procedure. -I would keep the patient on telemetry monitoring for 24 hours after the procedure. Check troponin 2. Check EKG. -The patient should have a follow-up echocardiogram while in the hospital. -In the long-term, the patient would also benefit from further attempts at smoking cessation, she would also benefit from a low-dose screening chest CT for lung cancer screening. -Check fasting lipid profile while in the hospital. Consult Acknowledgment - Thank you for your consult request.
[2017-08-22 14:01] VITALS: BP 112/64
--- NOTE | 2017-08-22 16:55 | Operative Report ---
Operative/Inv Procedure Report Surgery Date: 08/22/17 Name of Procedure: Right femur intramedullary nailing for intertrochanteric hip fracture Pre-Operative Diagnosis: Right intertrochanteric hip fracture Post-Operative Diagnosis: Right intertrochanteric hip fracture Estimated Blood Loss: 50ml to 100ml Surgeon/Forming Machine Adjuster: Amador Nguyen Anesthesia: laryngeal mask airway Operative/Procedure Note Note: Patient was brought to the operating room and given a general anesthetic while in her bed. She did receive 600 mg of clindamycin due to allergies to cephalosporins. She was then also given a iliac femoral block by anesthesia. She was injured gently transferred to the fracture table placed in longitudinal traction and under fluoroscopic pictures and anatomic reduction was carried out of the proximal femur. The right thigh and leg were then prepped and draped in usual sterile fashion. An appropriate timeout was done prior to procedure indicate the right lower extremity was the appropriate extremity and it was signed. A small 3 cm incision was carried out above the greater trochanter. Guidewire was placed down the greater trochanter just medial to the tip and then proximal reaming carried out. This was verified on AP and lateral fluoroscopic pictures. A short 130 nail was then placed down the femur at the appropriate height and then appropriate drilling for a lag screw was carried out into the femoral head stopping 5 mm short of the articular surface. Appropriate measurements were taken and then the appropriate 100 mm lag screw was placed. After completing this this was this structure was then locked in place using the proximal locking screw. Then proceeded to do the distal locking screw 5.0 cortical screw. Appropriate drilling depth gauge measurement and then the screw was placed perfect length good fixation. Final x-rays were taken showing an anatomic reduction with the nail lag screw and locking screw in place. Thorough irrigation was carried out the wounds were closed in a layered fashion dry sterile dressings were applied and she was sent back to the recovery room in stable condition all complications and a dictation by Dr. Nguyen thank you
--- NOTE | 2017-08-22 20:55 | PN- Orthopedic ---
Subjective Subjective: POC denies pain, sleepy. +uo via hernandez. no oob. mark small amt food/drink. no n/v/ cp/sob. no paresthesias. Objective Vital Signs and I&Os Vital Signs Date Time Temp Pulse Resp B/P B/P Pulse O2 O2 Flow FiO2 Mean Ox Delivery Rate 08/22 1421 Room Air Room Air 08/22 1401 98.3 99 16 112/64 91 Room Air 08/22 0906 95 98/60 08/22 0800 Room Air 08/22 0541 97.6 90 18 100/50 93 Room Air 08/21 2153 97.7 97 18 102/68 91 Room Air Intake & Output 08/22 1600 08/22 0800 08/22 0000 08/21 1600 08/21 0800 08/21 0000 Intake Total 400 300 80 Output Total 500 200 Balance -100 300 -120 Intake, IV 400 300 30 Intake, Oral 0 0 50 Number 1 Bowel Movements Output, Urine 500 200 Patient 125 lb 130 lb 110 lb Weight Weight Bed scale Reported by Patient Estimated Measurement Method Physical Exam: GEN- NAD CARD- s1s2 PULM- ctab EXT- r hip dressed- cdi. calves soft nt b;. r foot warm, gross sensate/motor intact. alps on bl Assessment/Plan Assessment/Plan A- POD0 sp r hip orif, stable orthopedically. P- PT, WBAT prn pain meds diet as tolerated hl, dc hernandez per medical team clinda x2 doses postop eliquis 2.5 BID to start in am if ok with primary team dsg change POD2 dc planning medical care per primary team
[2017-08-22 21:29] VITALS: BP 96/58
[2017-08-23 03:35] VITALS: BP 118/58
[2017-08-23 06:31] VITALS: BP 110/60
--- NOTE | 2017-08-23 06:51 | RADIOLOGY REPORT ---
EXAMINATION: CR RIGHT HIP/INTRAOPERATIVE FLUOROSCOPY CLINICAL INDICATION: Right hip hardware. COMPARISON: Pelvis film from 08/21/2017. TECHNIQUE/FINDINGS: Fluoroscopic equipment was dedicated to the operating room for the performance of an intraoperative procedure. Several (5) spot films were acquired and are archived in PACS. Please refer to operative notes for procedural detail. FLUOROSCOPY TIME: 31.4 seconds. IMPRESSION: Administrative dictation for intraoperative fluoroscopy and image archiving in PACS. Please refer to operative notes for details.
--- NOTE | 2017-08-23 07:17 | PN- Housestaff ---
See Addendum Subjective Follow-up For: Hip fracture status post right femur intramedullary nailing Tele-Events Since Last Visit: Normal sinus rhythm 7080 Subjective: No overnight events. Patient was transferred to the telemetry floor after her operation for monitoring for 24 hours. She slept well overnight and has no pain this morning. She has no chest pain or shortness of breath either. She feels hungry this morning. Review of Systems Constitutional: Reports: no symptoms. EENTM: Reports: no symptoms. Cardiovascular: Reports: no symptoms. Respiratory: Reports: no symptoms. Gastrointestinal: Reports: see HPI. Genitourinary: Reports: no symptoms. Musculoskeletal: Reports: no symptoms. Skin: Reports: no symptoms. Neurological/Psychological: Reports: no symptoms. Hematologic/Endocrine: Reports: no symptoms. Immunologic/Allergic: Reports: no symptoms. Objective Last 24 Hrs of Vital Signs/I&O Vital Signs Date Time Temp Pulse Resp B/P B/P Pulse O2 O2 Flow FiO2 Mean Ox Delivery Rate 08/23 0631 97.7 87 18 110/60 95 Nasal Cannula 08/23 0335 98.1 67 22 118/58 93 Nasal Cannula 08/22 2129 97.4 62 96/58 96 Nasal 4.0L Cannula 08/22 1421 Room Air Room Air 08/22 1401 98.3 99 16 112/64 91 Room Air 08/22 0906 95 98/60 08/22 0800 Room Air Intake & Output 08/23 0800 08/23 0000 08/22 1600 Intake Total 120 300 400 Output Total 350 280 500 Balance -230 20 -100 Intake, IV 400 Intake, Oral 120 300 0 Output, Urine 350 280 500 Physical Exam General Appearance: Alert, Oriented X3, Cooperative, No Acute Distress Cardiovascular: Regular Rate, Normal S1, Normal S2 Lungs: midl wheezing Abdomen: Normal Bowel Sounds, Soft, No Tenderness Extremities: No Edema, Normal Pulses, No Tenderness/Swelling, incision nontender , no discharge or erythema Current Medications: Current Medications Sig/Hany Start time Last Medication Dose Route Stop Time Status Admin Acetaminophen 1,000 MG Q8P PRN 08/23 0715 AC PO Acetaminophen 1,000 MG .STK-MED ONE 08/22 1457 DC IV 08/22 1458 Acetaminophen 650 MG Q6P PRN 08/21 1830 DC 08/21 PO 2156 Atorvastatin Calcium 40 MG 1700 08/22 1700 AC 08/22 PO 2140 Cholecalciferol 1,000 IU DAILY 08/22 0900 AC 08/22 PO 0914 Clindamycin 600 MG IQ8 08/23 0000 AC 08/23 Dextrose/Water 50 ML IV 08/23 0829 0001 Dextrose/Sodium 1,000 ML Q20H 08/22 0000 DC 08/21 Chloride IV 08/22 1959 2153 Fentanyl Citrate 250 MCG .STK-MED ONE 08/22 1457 DC IM 08/22 1458 Heparin Sodium 5,000 UNIT Q8 08/21 2200 AC 08/23 (Porcine) SC 0601 Ketamine HCl 50 MG .STK-MED ONE 08/22 1457 DC IM 08/22 1458 Nicotine 14 MG DAILY 08/21 1736 08/22 TOP 0910 Patient Medication 1 ED ONE ONE 08/22 1115 DC 08/22 Teaching ED 08/22 1116 1137 Triamterene/HCTZ 1 CAP DAILY 08/22 0900 AC PO Last 24 Hrs of Lab/Jesus Results Last 24 Hrs of Labs/Mics: Laboratory Tests 08/23/17 0622: Sodium Pending, Potassium Pending, Chloride Pending, Carbon Dioxide Pending, Anion Gap Pending, BUN Pending, Creatinine Pending, BUN/Creatinine Ratio Pending , Magnesium Pending, Troponin I Pending, Triglycerides Pending, Cholesterol Pending, LDL Cholesterol, Calc Pending, HDL Cholesterol Pending, Cholesterol/HDL Ratio Pending, CBC w Diff Pending, WBC Pending, RBC Pending, Hgb Pending, Hct Pending, MCV Pending, MCH Pending, MCHC Pending, RDW Pending, Plt Count Pending, MPV Pending Assessment/Plan Assessment: Ms. Garay is a 82 year old female with past medical history significant for 50 + pack years of smoking (current), severe pulmonary hypertension diagnosed on echocardiogram in 2010, emphysema, hypertension, CKD Stage IIIA, and peripheral vascular disease on aspirin s/p right femoral stents who was brought in by ambulance after a mechanical fall at work and sustained a proximal right femur fracture. Problem list: 1. Right femur fracture status post right femur intramedullary nailing 2. Tobacco abuse #Right femur fracture status post right femur intramedullary nailing: Patient was admitted after a fall thought to be mechanical. She was found to have a right femur fracture and is now postop day 1 repair. She was placed on telemetry postoperatively because of her cardiac risk factors despite an RCRI of 0. She has had no telemetry events overnight and EKG and troponin 1 has been negative. She has minimal pain in the hip and feels well this morning. -Pain control -Appreciate orthopedic surgery recommendations -Appreciate cardiology recommendations -EKG and troponins 2 -TTE -Start apixaban -Discontinue Dahl catheter -Tobacco cessation counseling #Chronic medical problems: -Continue other home medications DVT prophylaxis with apixaban Heart healthy diet Full code Problem List: 1. Intertrochanteric fracture of right hip Pain Ratin Pain Location: no Pain Goal: Remain pain free (se) Pain Plan: see a/p Tomorrow's Labs & Rationales: man bep
[2017-08-23 07:54] LABS: ABSOLUTE BASOPHIL COUNT 0 /CUMM (0.0-0.2); ABSOLUTE EOSINOPHIL COUNT 0.1 /CUMM (0.0-0.7); ABSOLUTE GRANULOCYTE CT 9.1 /CUMM (1.4-6.5); ABSOLUTE MONOCYTE COUNT 1.5 /CUMM (0.10-0.60); BASOPHIL % 0.2 % (0.0-2.0); HEMATOCRIT 35.8 % (37-47); MEAN CORPUSCULAR HGB 27.2 PG (27.0-31.0); MEAN CORPUSCULAR HGB CONC 33.3 G/DL (33.0-37.0); MEAN CORPUSCULAR VOLUME 81.7 FL (81.0-99.0); MEAN PLATELET VOLUME 9.4 FL (7.4-10.4); PLATELET COUNT 214 /CUMM (130-400); RBC DISTRIBUTION WIDTH 19.8 % (11.5-14.5); RED BLOOD CELL CT 4.39 /CUMM (4.20-5.40); WHITE BLOOD CELL COUNT 11.6 /CUMM (4.8-10.8)
[2017-08-23 08:00] VITALS: BP 118/60
--- NOTE | 2017-08-23 09:14 | PN- Orthopedic ---
Subjective Subjective: Minimal pain, no acute events overnight, she is feeling well otherwise, she is anxious to be discharged home Objective Vital Signs and I&Os Vital Signs Date Time Temp Pulse Resp B/P B/P Pulse O2 O2 Flow FiO2 Mean Ox Delivery Rate 08/23 0858 91 Nasal 2.0L Cannula 08/23 0800 94 118/60 95 Nasal 4.0L Cannula 08/23 0631 97.7 87 18 110/60 95 Nasal Cannula 08/23 0335 98.1 67 22 118/58 93 Nasal Cannula 08/22 2129 97.4 62 96/58 96 Nasal 4.0L Cannula 08/22 1421 Room Air Room Air 08/22 1401 98.3 99 16 112/64 91 Room Air Intake & Output 08/23 1600 08/23 0800 08/23 0000 08/22 1600 08/22 0800 08/22 0000 Intake Total 120 300 400 300 80 Output Total 350 280 500 200 Balance -230 20 -100 300 -120 Intake, IV 400 300 30 Intake, Oral 120 300 0 0 50 Output, Urine 350 280 500 200 Patient 125 lb 130 lb Weight Weight Bed scale Reported by Patient Measurement Method Physical Exam: Well-developed well-nourished no apparent distress. HEENT: Atraumatic, extraocular motion intact Neck: Supple, no lymphadenopathy Respiratory: No respiratory distress Extremities: No edema RIGHT lower extremity hip dressing in place, Dressing clean dry and intact Mild thigh swelling No signs of infection. No shortening or rotation Hip range of motion is limited and without unexpected pain Neurovascularly intact distally Bilateral calves are supple, nontender. Neuro: Alert and oriented x3 Psych: Mood affect normal, normal memory normal judgment. Skin: Warm and dry, no rash on exposed skin Results Last 48 Hours of Labs: Laboratory Tests 08/23 08/22 0622 0714 Chemistry Sodium (137 - 145 mmol/L) 139 138 Potassium (3.5 - 5.1 mmol/L) 3.5 3.7 Chloride (98 - 107 mmol/L) 104 105 Carbon Dioxide (22 - 30 mmol/L) 26 24 Anion Gap (5 - 16) 9 9 BUN (7 - 17 mg/dL) 27 H 27 H Creatinine (0.5 - 1.0 mg/dL) 1.2 H 1.2 H Estimated GFR (>60 ml/min) 43 L 43 L BUN/Creatinine Ratio (7 - 25 %) 22.5 22.5 Magnesium (1.6 - 2.3 mg/dL) 1.6 1.6 Troponin I (< 0.11 ng/ml) 0.09 Triglycerides (<150 mg/dL) 148 Cholesterol (<200 MG/DL) 135 LDL Cholesterol, Calc (65 - 129 mg/dL) 73 HDL Cholesterol (40 - 60 mg/dL) 33 L Cholesterol/HDL Ratio (0.00 - 4.23 %) 4 Hematology CBC w Diff NO MAN DIFF REQ NO MAN DIFF REQ WBC (4.8 - 10.8 /CUMM) 11.6 H 10.7 RBC (4.20 - 5.40 /CUMM) 4.39 4.97 Hgb (12.0 - 16.0 G/DL) 11.9 L 13.5 Hct (37 - 47 %) 35.8 L 40.3 MCV (81.0 - 99.0 FL) 81.7 81.1 MCH (27.0 - 31.0 PG) 27.2 27.1 MCHC (33.0 - 37.0 G/DL) 33.3 33.4 RDW (11.5 - 14.5 %) 19.8 H 20.4 H Plt Count (130 - 400 /CUMM) 214 223 MPV (7.4 - 10.4 FL) 9.4 9.1 Gran % (42.2 - 75.2 %) 78.0 H 81.4 H Lymphocytes % (20.5 - 51.1 %) 8.2 L 7.9 L Monocytes % (1.7 - 9.3 %) 12.6 H 10.0 H Eosinophils % (0 - 5 %) 1.0 0.6 Basophils % (0.0 - 2.0 %) 0.2 0.1 Absolute Granulocytes (1.4 - 6.5 /CUMM) 9.1 H 8.7 H Absolute Lymphocytes (1.2 - 3.4 /CUMM) 1.0 L 0.8 L Absolute Monocytes (0.10 - 0.60 /CUMM) 1.5 H 1.1 H Absolute Eosinophils (0.0 - 0.7 /CUMM) 0.1 0.1 Absolute Basophils (0.0 - 0.2 /CUMM) 0 0 06/12 1511 Chemistry Sodium (137 - 145 mmol/L) 138 Potassium (3.5 - 5.1 mmol/L) 3.8 Chloride (98 - 107 mmol/L) 101 Carbon Dioxide (22 - 30 mmol/L) 26 Anion Gap (5 - 16) 11 BUN (7 - 17 mg/dL) 33 H Creatinine (0.5 - 1.0 mg/dL) 1.3 H Estimated GFR (>60 ml/min) 39 L BUN/Creatinine Ratio (7 - 25 %) 25.4 H Glucose (65 - 99 mg/dL) 109 H Hemoglobin A1c (4.2 - 5.8 %) 5.2 Calcium (8.4 - 10.2 mg/dL) 9.7 Total Bilirubin (0.2 - 1.3 mg/dL) 1.2 AST (14 - 36 U/L) 35 ALT (9 - 52 U/L) 38 Alkaline Phosphatase (<127 U/L) 90 Total Protein (6.3 - 8.2 g/dL) 5.9 L Albumin (3.5 - 5.0 g/dL) 3.7 Globulin (1.9 - 4.2 gm/dL) 2.2 Albumin/Globulin Ratio (1.1 - 2.2 %) 1.7 Triglycerides (<150 mg/dL) 219 H Cholesterol (<200 MG/DL) 202 H LDL Cholesterol, Calc (65 - 129 mg/dL) 117 HDL Cholesterol (40 - 60 mg/dL) 42 Cholesterol/HDL Ratio (0.00 - 4.23 %) 5 H Coagulation PT (9.4 - 12.5 SEC) 12.2 INR (0.90 - 1.19) 1.12 APTT (25 - 37 SEC) 30 Hematology CBC w Diff NO MAN DIFF REQ WBC (4.8 - 10.8 /CUMM) 12.4 H RBC (4.20 - 5.40 /CUMM) 5.74 H Hgb (12.0 - 16.0 G/DL) 15.2 Hct (37 - 47 %) 46.3 MCV (81.0 - 99.0 FL) 80.7 L MCH (27.0 - 31.0 PG) 26.5 L MCHC (33.0 - 37.0 G/DL) 32.8 L RDW (11.5 - 14.5 %) 20.2 H Plt Count (130 - 400 /CUMM) 243 MPV (7.4 - 10.4 FL) 8.3 Gran % (42.2 - 75.2 %) 86.2 H Lymphocytes % (20.5 - 51.1 %) 5.6 L Monocytes % (1.7 - 9.3 %) 7.3 Eosinophils % (0 - 5 %) 0.6 Basophils % (0.0 - 2.0 %) 0.3 Absolute Granulocytes (1.4 - 6.5 /CUMM) 10.7 H Absolute Lymphocytes (1.2 - 3.4 /CUMM) 0.7 L Absolute Monocytes (0.10 - 0.60 /CUMM) 0.9 H Absolute Eosinophils (0.0 - 0.7 /CUMM) 0.1 Absolute Basophils (0.0 - 0.2 /CUMM) 0 Assessment/Plan Assessment/Plan Postop day #1 status post Right femur intramedullary nailing for intertrochanteric hip fracture Perioperative antibiotics Weightbearing as tolerated right lower extremity Eliquis for DVT prophylaxis starting this morning Physical therapy Dressing change postop day 2 by surgery Discharge when medically stable, possibly tomorrow from a surgical standpoint We will follow Core Measures Venous Thromboembolism VTE Risk Factors Age>40 No Mechanical VTE Prophylaxis d/t N/A MechProphylax Ordered No VTE Pharm Prophylaxis d/t NA PharmProphylax ordered
[2017-08-23 12:30] VITALS: BP 90/60
--- NOTE | 2017-08-23 13:25 | Discharge Summary ---
Visit Information Visit Dates Admission Date: 08/21/17 Discharge Date: 08/24/2017 Hospital Course Course Attending Physician: Maggy Lawrence MD Primary Care Physician: Arely CERVANTES,[facility] Course: Ms. Garay is a 82 year old female with past medical history significant for 50 + pack years of smoking (current), severe pulmonary hypertension diagnosed on echocardiogram in 2010, emphysema, hypertension, CKD Stage IIIA, and peripheral vascular disease on aspirin s/p right femoral stents who was brought in by ambulance after a mechanical fall at work and sustained a proximal right femur fracture. Vitals at the time of admission. Temperature 97.8, pulse 74, respirations 18, blood pressure 172/96, saturating 94% on room air. Labs WBC 12.4, H&H 15.2 and 46.3, platelets 243, sodium 138, K: 3.8, blood urea nitrogen 33, creatinine 1.3. Glucose 109. She was originally admitted to the Gen. medical service and below is a summary of the care she received under us. #Right femur fracture status post right femur intramedullary nailing: At the time of admission the patient underwent evaluation by surgery. She was taken to the OR on 08/22/2017. Prior to going to the operating room the patient did have a cardiology consultation who recommended the patient should be monitored on the telemetry service after a repair. Patient was also ruled out with serial troponins and EKG. While admitted the patient had no telemetry events. Patient worked with physical therapy and it was recommended the patient would benefit from short-term rehabilitation. Patient was started on Eliquis 2.5 mg twice a day. This is to be continued for the next 6 weeks. An echocardiogram was also ordered. #Tobacco cessation counseling Patient does have an extensive smoking use history and was counseled on the advantages of smoking cessation. An incentive spirometer was provided after her procedure. #Chronic medical problems: -Continue other home medications Patient was given a heart healthy diet. Patient is to be maintained on DVT prophylaxis with Eliquis for the next 6 weeks. Allergies: Coded Allergies: adhesive (RASH 08/21/17) cefuroxime (From CEFTIN) (DIARRHEA 08/21/17) clarithromycin (DIARRHEA 08/21/17) Uncoded Allergies: CONTRAST DYE (VOMIT AND HIVES 05/29/14) Pertinent Lab Results: SERVICE DATE: 08/21/17 EXAM TYPE: RAD - XRY-AP PELVIS; XRY-HIP 2-3 VIEWS, RIGHT EXAMINATION: XR RIGHT HIP XR PELVIS CLINICAL INFORMATION: Fall. Right hip pain. COMPARISON: CT dated 01/16/2007 TECHNIQUE: AP and crosstable lateral views of the right hip and an AP view of the pelvis. FINDINGS: An intertrochanteric fracture of the right proximal femur is associated with minimal apex anterior angulation and mild apex lateral angulation at the fracture site. Femoral head remains appropriately situated at the acetabulum. No additional fractures are identified. Bones are osteopenic. Right hip joint appears relatively well-preserved. An long stretch of arterial stents are present in the right common and superficial femoral artery distribution. Calcific atherosclerosis is present in the iliac and femoral arteries bilaterally. Left hip joint appears relatively well-preserved. There is degenerative disc disease in the lower lumbar spine. No additional fracture identified in the pelvis. IMPRESSION: Mildly angulated intertrochanteric fracture of the right proximal femur. Osteopenia. DICTATED BY: Geraldo Clemens MD SERVICE DATE: 08/21/17 EXAM TYPE: RAD - XRY-AP PELVIS; XRY-HIP 2-3 VIEWS, RIGHT EXAMINATION: XR RIGHT HIP XR PELVIS CLINICAL INFORMATION: Fall. Right hip pain. COMPARISON: CT dated 01/16/2007 TECHNIQUE: AP and crosstable lateral views of the right hip and an AP view of the pelvis. FINDINGS: An intertrochanteric fracture of the right proximal femur is associated with minimal apex anterior angulation and mild apex lateral angulation at the fracture site. Femoral head remains appropriately situated at the acetabulum. No additional fractures are identified. Bones are osteopenic. Right hip joint appears relatively well-preserved. An long stretch of arterial stents are present in the right common and superficial femoral artery distribution. Calcific atherosclerosis is present in the iliac and femoral arteries bilaterally. Left hip joint appears relatively well-preserved. There is degenerative disc disease in the lower lumbar spine. No additional fracture identified in the pelvis. IMPRESSION: Mildly angulated intertrochanteric fracture of the right proximal femur. Osteopenia. DICTATED BY: Geraldo Clemens MD SERVICE DATE: 08/21/17 EXAM TYPE: RAD - XRY-AP PELVIS; XRY-HIP 2-3 VIEWS, RIGHT EXAMINATION: XR RIGHT HIP XR PELVIS CLINICAL INFORMATION: Fall. Right hip pain. COMPARISON: CT dated 01/16/2007 TECHNIQUE: AP and crosstable lateral views of the right hip and an AP view of the pelvis. FINDINGS: An intertrochanteric fracture of the right proximal femur is associated with minimal apex anterior angulation and mild apex lateral angulation at the fracture site. Femoral head remains appropriately situated at the acetabulum. No additional fractures are identified. Bones are osteopenic. Right hip joint appears relatively well-preserved. An long stretch of arterial stents are present in the right common and superficial femoral artery distribution. Calcific atherosclerosis is present in the iliac and femoral arteries bilaterally. Left hip joint appears relatively well-preserved. There is degenerative disc disease in the lower lumbar spine. No additional fracture identified in the pelvis. IMPRESSION: Mildly angulated intertrochanteric fracture of the right proximal femur. Osteopenia. DICTATED BY: Geraldo Clemens MD SERVICE DATE: 08/22/17- EXAM TYPE: RAD - XRY-HIP 2-3 VIEWS, RIGHT EXAMINATION: CR RIGHT HIP/INTRAOPERATIVE FLUOROSCOPY CLINICAL INDICATION: Right hip hardware. COMPARISON: Pelvis film from 08/21/2017. TECHNIQUE/FINDINGS: Fluoroscopic equipment was dedicated to the operating room for the performance of an intraoperative procedure. Several (5) spot films were acquired and are archived in PACS. Please refer to operative notes for procedural detail. FLUOROSCOPY TIME: 31.4 seconds. IMPRESSION: Administrative dictation for intraoperative fluoroscopy and image archiving in PACS. Please refer to operative notes for details. DICTATED BY: Sharita CERVANTES,Arianne Chris Disposition Summary Disposition Principal Diagnosis: 1. Right femur fracture status post right femur intramedullary nailing Additional Diagnosis: 2. Nicotine dependence Discharge Disposition: SNF Discharge Instructions General Discharge Information Code Status: Full Code Patient's Diet: Heart healthy. Patient's Activity: As tolerated. Follow-Up Instructions/Appts: Please follow-up with your primary care physician within 7 days. Please follow- up with the highway construction inspector within a week. We have provided you a referral. Medications at Discharge Discharge Medications: Continue taking these medications: Triamterene/Hydrochlorothiazid (Triamterene-Hctz 37.5-25 MG Tb) 37.5 MG-25 MG TABLET 1 Tablet ORAL DAILY Qty = 90 Aspirin (Aspirin*) 81 MG TAB.CHEW 1 Tablet ORAL DAILY Cholecalciferol (Vitamin D3) 1,000 UNIT TABLET 1 Tablet ORAL DAILY Start taking the following new medications: Apixaban (Eliquis) 2.5 MG TABLET 2.5 Milligram ORAL TWICE DAILY Qty = 60 No Refills Instructions: Please take for 6 weeks. Atorvastatin Calcium (Atorvastatin Calcium) 40 MG TABLET 40 Milligram ORAL 5 PM Qty = 30 No Refills Copies To: Melinda CERVANTES,Maggy; Patrick CERVANTES,Amador Mata; Arely CERVANTES,Silvano; Petr CERVANTES,Danny Hurt
[2017-08-23 14:18] VITALS: BP 104/58
--- NOTE | 2017-08-23 16:12 | PN- Cardiology ---
Subjective Subjective: stable and doing okay postsurgery. Anxious to be discharged. Objective Vital Signs and I&Os Vital Signs Date Time Temp Pulse Resp B/P B/P Pulse O2 O2 Flow FiO2 Mean Ox Delivery Rate 08/23 1418 97.1 85 18 104/58 93 Nasal 2.0L Cannula 08/23 1230 97.7 86 18 90/60 92 Nasal 3.0L Cannula 08/23 0858 91 Nasal 2.0L Cannula 08/23 0800 94 118/60 95 Nasal 4.0L Cannula 08/23 0631 97.7 87 18 110/60 95 Nasal Cannula 08/23 0335 98.1 67 22 118/58 93 Nasal Cannula 08/22 2129 97.4 62 96/58 96 Nasal 4.0L Cannula Intake & Output 08/23 1600 08/23 0800 08/23 0000 08/22 1600 08/22 0800 08/22 0000 Intake Total 660 120 300 400 300 80 Output Total 100 350 280 500 200 Balance 560 -230 20 -100 300 -120 Intake, IV 100 400 300 30 Intake, Oral 560 120 300 0 0 50 Output, Urine 100 350 280 500 200 Patient 125 lb 130 lb Weight Weight Bed scale Reported by Patient Measurement Method Current Medications: Current Medications Sig/Hany Start time Last Medication Dose Route Stop Time Status Admin Acetaminophen 1,000 MG Q8P PRN 08/23 0715 AC 08/23 PO 0820 Acetaminophen 650 MG Q6P PRN 08/21 1830 DC 08/21 PO 2156 Apixaban 2.5 MG BID 08/23 0900 AC 08/23 PO 1105 Atorvastatin Calcium 40 MG 1700 08/22 1700 AC 08/22 PO 2140 Cholecalciferol 1,000 IU DAILY 08/22 0900 AC 08/23 PO 1106 Clindamycin 600 MG IQ8 08/23 0000 DC 08/23 Dextrose/Water 50 ML IV 08/23 0829 0817 Dextrose/Sodium 1,000 ML Q20H 08/22 0000 DC 08/21 Chloride IV 08/22 1959 2153 Heparin Sodium 5,000 UNIT Q8 08/21 2200 DC 08/23 (Porcine) SC 0601 Magnesium Oxide 400 MG ONE ONE 08/23 1400 DC 08/23 PO 08/23 1401 1411 Magnesium Oxide 400 MG ONE ONE 08/23 0845 DC 08/23 PO 08/23 0846 1105 Nicotine 14 MG DAILY 08/21 1736 AC 08/23 TOP 1106 Triamterene/HCTZ 1 CAP DAILY 08/22 0900 AC PO Results Last 48 Hrs of Labs/Mics: Laboratory Tests 08/23/17 1155: Troponin I 0.07 08/23/17 0622: Anion Gap 9, Estimated GFR 43 L, BUN/Creatinine Ratio 22.5, Magnesium 1.6, Troponin I 0.09, Triglycerides 148, Cholesterol 135, LDL Cholesterol, Calc 73, HDL Cholesterol 33 L, Cholesterol/HDL Ratio 4, CBC w Diff NO MAN DIFF REQ, RBC 4.39, MCV 81.7, MCH 27.2, MCHC 33.3, RDW 19.8 H, MPV 9.4, Gran % 78.0 H, Lymphocytes % 8.2 L, Monocytes % 12.6 H, Eosinophils % 1.0, Basophils % 0.2, Absolute Granulocytes 9.1 H, Absolute Lymphocytes 1.0 L, Absolute Monocytes 1.5 H, Absolute Eosinophils 0.1, Absolute Basophils 0 08/22/17 0714: Anion Gap 9, Estimated GFR 43 L, BUN/Creatinine Ratio 22.5, Magnesium 1.6, CBC w Diff NO MAN DIFF REQ, RBC 4.97, MCV 81.1, MCH 27.1, MCHC 33.4, RDW 20.4 H, MPV 9.1, Gran % 81.4 H, Lymphocytes % 7.9 L, Monocytes % 10.0 H, Eosinophils % 0.6, Basophils % 0.1, Absolute Granulocytes 8.7 H, Absolute Lymphocytes 0.8 L, Absolute Monocytes 1.1 H, Absolute Eosinophils 0.1, Absolute Basophils 0 Microbiology 08/21 2150 URINE ROUT: Urine Culture - COMP Assessment/Plan Assessment/Plan Assessment: 1. Right intertrochanteric femur fracture, secondary to mechanical fall-stable postop day one 2. Abnormal ECG with multi-fascicular block 3. Probable severe underlying pulmonary disease 4. History of moderate tricuspid insufficiency and severe pulmonary hypertension on echocardiogram 2010 5. History of hypertension 6. Chronic renal insufficiency 7. History of severe peripheral arterial disease with multiple stents right lower extremity arterial system 8. Long-standing tobacco use Recommendations: -Echocardiogram pending -Out of bed as tolerated -Discharge planning as per orthopedics Continue telemetry? Yes
[2017-08-23 21:47] VITALS: BP 98/64
[2017-08-24 06:27] VITALS: BP 110/70
--- NOTE | 2017-08-24 07:07 | PN- Housestaff ---
See Addendum Subjective Follow-up For: Right femur fracture status post right femur intramedullary nailing Tele-Events Since Last Visit: Sinus rhythm, [address] Subjective: No overnight events. The patient has very minimal pain in her hip and denies any chest pain or shortness of breath. She very much does not want to go to rehab. She wants to go home and have services at home. Review of Systems Constitutional: Reports: no symptoms. EENTM: Reports: no symptoms. Cardiovascular: Reports: no symptoms. Respiratory: Reports: no symptoms. Gastrointestinal: Reports: no symptoms. Genitourinary: Reports: no symptoms. Musculoskeletal: Reports: see HPI. Skin: Reports: no symptoms. Neurological/Psychological: Reports: no symptoms. Hematologic/Endocrine: Reports: no symptoms. Immunologic/Allergic: Reports: no symptoms. Objective Last 24 Hrs of Vital Signs/I&O Vital Signs Date Time Temp Pulse Resp B/P B/P Pulse O2 O2 Flow FiO2 Mean Ox Delivery Rate 08/24 0627 97.8 88 20 110/70 95 Nasal Cannula 08/23 2147 98.1 83 20 98/64 94 Nasal Cannula 08/23 2126 Nasal 3.0L Cannula 08/23 1600 92 Nasal 3.0L Cannula 08/23 1418 97.1 85 18 104/58 93 Nasal 2.0L Cannula 08/23 1230 97.7 86 18 90/60 92 Nasal 3.0L Cannula 08/23 0858 91 Nasal 2.0L Cannula 08/23 0800 94 118/60 95 Nasal 4.0L Cannula Intake & Output 08/24 0800 08/24 0000 08/23 1600 Intake Total 120 160 660 Output Total 250 50 100 Balance -130 110 560 Intake, IV 100 Intake, Oral 120 160 560 Number 1 Bowel Movements Output, Urine 250 50 100 Patient 54.091 kg Weight Weight Bed scale Measurement Method Physical Exam General Appearance: Alert, Oriented X3, Cooperative, No Acute Distress Cardiovascular: Regular Rate, Normal S1, Normal S2 Lungs: Clear to Auscultation Abdomen: Normal Bowel Sounds, Soft, No Tenderness Extremities: No Edema, Normal Pulses, No Tenderness/Swelling Current Medications: Current Medications Sig/Hany Start time Last Medication Dose Route Stop Time Status Admin Acetaminophen 1,000 MG Q8P PRN 08/23 0715 AC 08/23 PO 1704 Acetaminophen 650 MG Q6P PRN 08/21 1830 DC 08/21 PO 2156 Apixaban 2.5 MG BID 08/23 0900 AC 08/23 PO 2023 Atorvastatin Calcium 40 MG 1700 08/22 1700 AC 08/23 PO 1703 Cholecalciferol 1,000 IU DAILY 08/22 0900 AC 08/23 PO 1106 Clindamycin 600 MG IQ8 08/23 0000 DC 08/23 Dextrose/Water 50 ML IV 08/23 0829 0817 Heparin Sodium 5,000 UNIT Q8 08/21 2200 DC 08/23 (Porcine) SC 0601 Magnesium Oxide 400 MG ONE ONE 08/23 1400 DC 08/23 PO 08/23 1401 1411 Magnesium Oxide 400 MG ONE ONE 08/23 0845 DC 08/23 PO 08/23 0846 1105 Nicotine 14 MG DAILY 08/21 1736 AC 08/23 TOP 1106 Patient Medication 1 ED ONE ONE 08/23 1645 DC Teaching ED 08/23 1646 Triamterene/HCTZ 1 CAP DAILY 08/22 0900 AC PO Last 24 Hrs of Lab/Jesus Results Last 24 Hrs of Labs/Mics: Laboratory Tests 08/24/17 0619: Sodium Pending, Potassium Pending, Chloride Pending, Carbon Dioxide Pending, Anion Gap Pending, BUN Pending, Creatinine Pending, BUN/Creatinine Ratio Pending , CBC w Diff Pending, WBC Pending, RBC Pending, Hgb Pending, Hct Pending, MCV Pending, MCH Pending, MCHC Pending, RDW Pending, Plt Count Pending, MPV Pending 08/23/17 1155: Troponin I 0.07 Assessment/Plan Assessment: Ms. Garay is a 82 year old female with past medical history significant for 50 + pack years of smoking (current), severe pulmonary hypertension diagnosed on echocardiogram in 2010, emphysema, hypertension, CKD Stage IIIA, and peripheral vascular disease on aspirin s/p right femoral stents who was brought in by ambulance after a mechanical fall at work and sustained a proximal right femur fracture. Problem list: 1. Right femur fracture status post right femur intramedullary nailing 2. Tobacco abuse #Right femur fracture status post right femur intramedullary nailing: Patient was admitted after a fall thought to be mechanical. She was found to have a right femur fracture and is now postop day 2 repair. She was placed on telemetry postoperatively because of her cardiac risk factors despite an RCRI of 0. She has had no telemetry events and EKG and troponin 2 has been negative. She has minimal pain in the hip and feels well this morning. She would like to go home but physical therapy is recommending rehab. -Pain control -Appreciate orthopedic surgery recommendations -Appreciate cardiology recommendations -TTE -apixaban -Tobacco cessation counseling #Chronic medical problems: -Continue other home medications DVT prophylaxis with apixaban Heart healthy diet Full code Problem List: 1. Intertrochanteric fracture of right hip Pain Ratin Pain Location: no Pain Goal: Remain pain free Pain Plan: see a/p Tomorrow's Labs & Rationales: no
[2017-08-24 07:49] LABS: ABSOLUTE BASOPHIL COUNT 0 /CUMM (0.0-0.2); ABSOLUTE EOSINOPHIL COUNT 0.2 /CUMM (0.0-0.7); ABSOLUTE GRANULOCYTE CT 7.3 /CUMM (1.4-6.5); ABSOLUTE LYMPH COUNT 0.8 /CUMM (1.2-3.4); ABSOLUTE MONOCYTE COUNT 1.2 /CUMM (0.10-0.60); BASOPHIL % 0.2 % (0.0-2.0); EOSINOPHIL % 1.8 % (0-5); GRANULOCYTE % 77.6 % (42.2-75.2); HEMATOCRIT 34.7 % (37-47); MEAN CORPUSCULAR HGB 27.4 PG (27.0-31.0); MEAN CORPUSCULAR HGB CONC 33.5 G/DL (33.0-37.0); MEAN CORPUSCULAR VOLUME 81.6 FL (81.0-99.0); PLATELET COUNT 221 /CUMM (130-400); RED BLOOD CELL CT 4.24 /CUMM (4.20-5.40); WHITE BLOOD CELL COUNT 9.4 /CUMM (4.8-10.8)
--- NOTE | 2017-08-24 08:07 | PN- Orthopedic ---
Subjective Subjective: POD #2 s/p ORIF R hip secondary to an intertroch hip fracture. Tolerating a regular diet. Voiding spontaneously. Ambulated with PT yesterday; felt unsteady. Asking to go home rather than STR. Remains on nasal cannula (not on home o2) Objective Vital Signs and I&Os Vital Signs Date Time Temp Pulse Resp B/P B/P Pulse O2 O2 Flow FiO2 Mean Ox Delivery Rate 08/24 626 97.8 88 20 110/70 95 Nasal Cannula 08/23 2146 98.1 83 20 98/64 94 Nasal Cannula 08/23 2126 Nasal 3.0L Cannula 08/23 1600 92 Nasal 3.0L Cannula 08/23 1418 97.1 85 18 104/58 93 Nasal 2.0L Cannula 08/23 1230 97.7 86 18 90/60 92 Nasal 3.0L Cannula 08/23 0858 91 Nasal 2.0L Cannula Intake & Output 08/24 1600 08/24 0800 08/24 0000 08/23 1600 08/23 0800 08/23 0000 Intake Total 120 160 660 120 300 Output Total 250 50 100 350 280 Balance -130 110 560 -230 20 Intake, IV 100 Intake, Oral 120 160 560 120 300 Number 1 Bowel Movements Output, Urine 250 50 100 350 280 Patient 119 lb Weight Weight Bed scale Measurement Method Physical Exam: Gen: AAOx3 in NAD Ext: palpable DP pulse to right foot. Foot warm. Sensation/motor exam grossly intact. Dressing changed to right hip. Three incisions intact with lyndsey, no surrounding erythema or drainage noted. No ecchymosis. Current Medications: Current Medications Sig/Hany Start time Last Medication Dose Route Stop Time Status Admin Acetaminophen 1,000 MG Q8P PRN 08/23 0715 AC 08/23 PO 1704 Apixaban 2.5 MG BID 08/23 0900 AC 08/23 PO 2023 Atorvastatin Calcium 40 MG 1700 08/22 1700 AC 08/23 PO 1703 Cholecalciferol 1,000 IU DAILY 08/22 0900 AC 08/23 PO 1106 Clindamycin 600 MG IQ8 08/23 0000 DC 08/23 Dextrose/Water 50 ML IV 08/23 0829 0817 Heparin Sodium 5,000 UNIT Q8 08/21 2200 DC 08/23 (Porcine) SC 0601 Magnesium Oxide 400 MG ONE ONE 08/23 1400 DC 08/23 PO 08/23 1401 1411 Magnesium Oxide 400 MG ONE ONE 08/23 0845 DC 08/23 PO 08/23 0846 1105 Nicotine 14 MG DAILY 08/21 1736 AC 08/23 TOP 1106 Patient Medication 1 ED ONE ONE 08/23 1645 DC Teaching ED 08/23 1646 Triamterene/HCTZ 1 CAP DAILY 08/22 0900 AC PO Results Last 48 Hours of Labs: Laboratory Tests 08/24 08/23 0619 1155 Chemistry Sodium (137 - 145 mmol/L) 140 Potassium (3.5 - 5.1 mmol/L) 3.5 Chloride (98 - 107 mmol/L) 104 Carbon Dioxide (22 - 30 mmol/L) 28 Anion Gap (5 - 16) 7 BUN (7 - 17 mg/dL) 28 H Creatinine (0.5 - 1.0 mg/dL) 1.2 H Estimated GFR (>60 ml/min) 43 L BUN/Creatinine Ratio (7 - 25 %) 23.3 Troponin I (< 0.11 ng/ml) 0.07 Hematology CBC w Diff NO MAN DIFF REQ WBC (4.8 - 10.8 /CUMM) 9.4 RBC (4.20 - 5.40 /CUMM) 4.24 Hgb (12.0 - 16.0 G/DL) 11.6 L Hct (37 - 47 %) 34.7 L MCV (81.0 - 99.0 FL) 81.6 MCH (27.0 - 31.0 PG) 27.4 MCHC (33.0 - 37.0 G/DL) 33.5 RDW (11.5 - 14.5 %) 21.0 H Plt Count (130 - 400 /CUMM) 221 MPV (7.4 - 10.4 FL) 9.0 Gran % (42.2 - 75.2 %) 77.6 H Lymphocytes % (20.5 - 51.1 %) 8.1 L Monocytes % (1.7 - 9.3 %) 12.3 H Eosinophils % (0 - 5 %) 1.8 Basophils % (0.0 - 2.0 %) 0.2 Absolute Granulocytes (1.4 - 6.5 /CUMM) 7.3 H Absolute Lymphocytes (1.2 - 3.4 /CUMM) 0.8 L Absolute Monocytes (0.10 - 0.60 /CUMM) 1.2 H Absolute Eosinophils (0.0 - 0.7 /CUMM) 0.2 Absolute Basophils (0.0 - 0.2 /CUMM) 0 /14 0622 Chemistry Sodium (137 - 145 mmol/L) 139 Potassium (3.5 - 5.1 mmol/L) 3.5 Chloride (98 - 107 mmol/L) 104 Carbon Dioxide (22 - 30 mmol/L) 26 Anion Gap (5 - 16) 9 BUN (7 - 17 mg/dL) 27 H Creatinine (0.5 - 1.0 mg/dL) 1.2 H Estimated GFR (>60 ml/min) 43 L BUN/Creatinine Ratio (7 - 25 %) 22.5 Magnesium (1.6 - 2.3 mg/dL) 1.6 Troponin I (< 0.11 ng/ml) 0.09 Triglycerides (<150 mg/dL) 148 Cholesterol (<200 MG/DL) 135 LDL Cholesterol, Calc (65 - 129 mg/dL) 73 HDL Cholesterol (40 - 60 mg/dL) 33 L Cholesterol/HDL Ratio (0.00 - 4.23 %) 4 Hematology CBC w Diff NO MAN DIFF REQ WBC (4.8 - 10.8 /CUMM) 11.6 H RBC (4.20 - 5.40 /CUMM) 4.39 Hgb (12.0 - 16.0 G/DL) 11.9 L Hct (37 - 47 %) 35.8 L MCV (81.0 - 99.0 FL) 81.7 MCH (27.0 - 31.0 PG) 27.2 MCHC (33.0 - 37.0 G/DL) 33.3 RDW (11.5 - 14.5 %) 19.8 H Plt Count (130 - 400 /CUMM) 214 MPV (7.4 - 10.4 FL) 9.4 Gran % (42.2 - 75.2 %) 78.0 H Lymphocytes % (20.5 - 51.1 %) 8.2 L Monocytes % (1.7 - 9.3 %) 12.6 H Eosinophils % (0 - 5 %) 1.0 Basophils % (0.0 - 2.0 %) 0.2 Absolute Granulocytes (1.4 - 6.5 /CUMM) 9.1 H Absolute Lymphocytes (1.2 - 3.4 /CUMM) 1.0 L Absolute Monocytes (0.10 - 0.60 /CUMM) 1.5 H Absolute Eosinophils (0.0 - 0.7 /CUMM) 0.1 Absolute Basophils (0.0 - 0.2 /CUMM) 0 Assessment/Plan Assessment/Plan A: POD #2 s/p ORIF R hip for an IT fracture; AVSS Plan: Daily dry dressing changes to right hip. Continue Physical therapy. Case management to see for dispo needs- patient asking to go home with services. Eliquis x 6 weeks total for DVT ppx. Bowel regimen
[2017-08-24] MEDS ORDERED: ATORVASTATIN CA40 M1 PO (11:57)
[2017-08-24] MEDS ORDERED: ELIQUIS2.5 M1 PO (11:57)
--- NOTE | 2017-08-24 11:59 | Patient Discharge Instructions ---
Discharge Instructions General Discharge Information You were seen/treated for: Hip fracture s/p repair Watch for these problems: Fever, chest pain, shortness of breath Special Instructions: Please take all medications as directed. Please follow-up with primary care. Diet Continue normal diet: Yes Activity Full Activity/No Limits: Yes Acute Coronary Syndrome Inclusion Criteria At DC or during hospital stay patient has or had the following: ACS DIAGNOSIS No Discharge Core Measures Meds if any: Prescribed or Continued at Discharge Meds if any: NOT Prescribed or Continued at Discharge Congestive Heart Failure Inclusion Criteria At DC or during hospital stay patient has or had the following: CHF DIAGNOSIS No Discharge Core Measures Meds if any: Prescribed or Continued at Discharge Meds if any: NOT Prescribed or Continued at Discharge Cerebrovascular accident Inclusion Criteria At DC or during hospital stay patient has or had the following: CVA/TIA Diagnosis No Discharge Core Measures Meds if any: Prescribed or Continued at Discharge Meds if any: NOT Prescribed or Continued at Discharge Venous thromboembolism Inclusion Criteria VTE Diagnosis No VTE Type NONE VTE Confirmed by (Test) NONE Discharge Core Measures - Per Current guidelines, there needs to be overlap - treatment for the first 5 days of Warfarin therapy. - If discharged on Warfarin prior to 5 days of - overlap therapy, the patient will need to be - assessed for post discharge needs including - *Post discharge parental anticoagulation - *Warfarin and/or parental anticoagulation education - *Follow up date to check INR post discharge At least 5 days overlap therapy as Inpatient No Meds if any: Prescribed or Continued at Discharge Note: Overlap Therapy is Warfarin and Anticoagulant Meds if any: NOT Prescribed or Continued at Discharge
[2017-08-24 12:18] VITALS: BP 110/70
--- NOTE | 2017-08-24 12:30 | ECHOCARDIOGRAM REPORT ---
ELLEN RDZ Age: 82 : 1935 Gender: F Exam Date: 08/23/2017 19:11 Exam Location: [place] Ht (in): 67 Wt (lb): 124 BSA: 1.62 BP: 98 / 60 Ordering Physician: Gulshan Gonzalez MD Referring Physician: Annika Humphreys MD Technologist: Deann Archibald [facility] Room Number: [id number] Indications: HYPERTENSION Rhythm: Sinus Technical Quality: Good FINDINGS Left Ventricle Normal size left ventricle. Flattened septum in systole consistent with right ventricle pressure overload. Normal left ventricular ejection fraction estimated at 60-65%. Right Ventricle Moderate right ventricular dilatation. Hypokinetic right ventricular free wall. Right Atrium Moderate right atrial dilatation. Left Atrium Left atrial dilatation. Mitral Valve Mitral valve thickened. [id number] mitral regurgitation. Anteriorly directed mitral regurgitation jet. Aortic Valve Trileaflet aortic valve. Diffuse thickening (sclerosis) of the aortic valve cusps without reduced excursion. No aortic stenosis. No aortic regurgitation. Tricuspid Valve Tricuspid valve not well visualized, grossly normal. Moderate tricuspid regurgitation. Tricuspid regurgitation jet eccentric. Right ventricular systolic pressure estimated to be elevated at 82 mmHg. Pulmonic Valve Structurally normal pulmonic valve. Mild pulmonic regurgitation. Pericardium No pericardial effusion. Great Vessels Aortic root and proximal ascending aorta not well visualized, grossly normal. CONCLUSIONS 1. Moderate aortic sclerosis is present with no significant valvular stenosis or insufficiency. 2. Mitral leaflet thickening is present with mild to moderate eccentric mitral insufficiency and left atrial enlargement. 3. There is no pericardial fluid detected. 4. The left ventricular chamber size is normal with a normal ejection fraction. Interventricular septal motion is markedly abnormal consistent with the presence of severe pulmonary hypertension. 5. LV diastolic dysfunction is present. 6. Moderate enlargement of the right heart chambers is noted with moderate eccentric tricuspid insufficiency, mild pulmonic insufficiency and severe pulmonary hypertensin with an estimated RV systolic pressure of at least 80 mmHg. Hypokinesia of the RV free wall and apex is also noted. Annika Humphreys M.D. (Electronically Signed) Final Date: 24 August 2017 12:29 MEASUREMENTS (Male / Female) Normal Values 2D ECHO LV Diastolic Diameter PLAX 4.4 cm 4.2 - 5.9 / 3.9 - 5.3 cm LV Systolic Diameter PLAX 2.8 cm 2.1 - 4.0 cm LV Fractional Shortening PLAX 36.4 % 25 - 46 % LV Ejection Fraction 2D Teich 66.3 % IVS Diastolic Thickness 0.9 cm LVPW Diastolic Thickness 1.1 cm LV Relative Wall Thickness 0.5 RV Internal Dim ED PLAX 4.1 cm 1.9 - 3.8 cm LVOT Diameter 2.0 cm Aortic Root Diameter 2.8 cm LA Systolic Diameter LX 3.3 cm 3.0 - 4.0 / 2.7 - 3.8 cm LA Volume 40.0 cm 18 - 58 / 22 - 52 cm Ascending Aorta Diameter 3.0 cm DOPPLER AV Peak Velocity 381.0 cm/s AV Peak Gradient 58.1 mmHg AV Mean Velocity 280.0 cm/s AV Mean Gradient 36.0 mmHg AV Velocity Time Integral 113.0 cm LVOT Peak Velocity 125.0 cm/s LVOT Peak Gradient 6.3 mmHg LVOT Mean Velocity 99.4 cm/s LVOT Mean Gradient 4.0 mmHg LVOT Velocity Time Integral 31.5 cm LVOT Stroke Volume 99.0 cm AV Area Cont Eq vti 0.9 cm AV Area Cont Eq pk 1.0 cm MV Peak Velocity 74.4 cm/s MV Peak Gradient 2.2 mmHg MV Mean Velocity 41.9 cm/s MV Mean Gradient 1.0 mmHg Mitral E Point Velocity 31.5 cm/s Mitral A Point Velocity 64.5 cm/s Mitral E to A Ratio 0.5 MV PHT Velocity 40.8 cm/s MV Deceleration [place] 148.0 cm/s MV Pressure Half Time 82.7 ms MV Area PHT 2.7 cm MV Deceleration Time 156.0 ms TR Peak Velocity 467.0 cm/s TR Peak Gradient 87.2 mmHg Right Atrial Pressure 5.0 mmHg Pulmonary Artery Systolic Pressu 92.2 mmHg Right Ventricular Systolic Press 92.2 mmHg PV Peak Velocity 106.0 cm/s PV Peak Gradient 4.5 mmHg PV Mean Velocity 77.8 cm/s PV Mean Gradient 3.0 mmHg PV Velocity Time Integral 12.5 cm LV E' Lateral Velocity 8.9 cm/s Mitral E to LV E' Lateral Ratio 3.5 LV E' Septal Velocity 3.6 cm/s Mitral E to LV E' Septal Ratio 8.7
--- NOTE | 2017-08-24 13:20 | PN- Cardiology ---
Subjective Subjective: Clinically stable and anxious to go home. Objective Vital Signs and I&Os Vital Signs Date Time Temp Pulse Resp B/P B/P Pulse O2 O2 Flow FiO2 Mean Ox Delivery Rate 08/24 1218 97.8 88 20 110/70 08/24 0935 Room Air Room Air 08/24 0800 93 Nasal 3.0L Cannula 08/24 0627 97.8 88 20 110/70 95 Nasal Cannula 08/23 2147 98.1 83 20 98/64 94 Nasal Cannula 08/23 2126 Nasal 3.0L Cannula 08/23 1600 92 Nasal 3.0L Cannula 08/23 1418 97.1 85 18 104/58 93 Nasal 2.0L Cannula Intake & Output 08/24 1600 08/24 0800 08/24 0000 08/23 1600 08/23 0800 08/23 0000 Intake Total 120 160 660 120 300 Output Total 250 50 100 350 280 Balance -130 110 560 -230 20 Intake, IV 100 Intake, Oral 120 160 560 120 300 Number 1 Bowel Movements Output, Urine 250 50 100 350 280 Patient 119 lb Weight Weight Bed scale Measurement Method Physical Exam: General Appearance: well developed/nourished, thin elderly female, alert, awake, oriented Head: normal HEENT: Normal Neck: supple, JVP elevated 2-3 cm at 45, carotid upstrokes normal bilaterally, no masses or thyromegaly Respiratory: chest non-tender, diffuse bilateral rhonchi Cardiovascular: regular rate/rhythm, normal S1, S2, 2/6 systolic murmur left lower sternal border Abdomen: normal bowel sounds, soft, non-tender Extremities: normal inspection, no edema Vascular: Pulses are 2+ and equal bilaterally Neurologic: Grossly normal/nonfocal Current Medications: Current Medications Sig/Hany Start time Last Medication Dose Route Stop Time Status Admin Acetaminophen 1,000 MG Q8P PRN 08/23 0715 AC 08/24 PO 0940 Apixaban 2.5 MG BID 08/23 0900 AC 08/24 PO 0929 Atorvastatin Calcium 40 MG 1700 08/22 1700 AC 08/23 PO 1703 Cholecalciferol 1,000 IU DAILY 08/22 09 AC 08/24 PO 09 Docusate Sodium 100 MG BID 08/24 0900 AC 08/24 PO 0928 Magnesium Oxide 400 MG ONE ONE 08/23 1400 DC 08/23 PO 08/23 1401 1411 Nicotine 14 MG DAILY 08/21 1736 08/24 TOP 0929 Patient Medication 1 ED ONE ONE 08/23 1645 [facility] ED 08/23 1646 Polyethylene Glycol 17 GM DAILY 08/24 0900 CAN PO Triamterene/HCTZ 1 CAP DAILY 08/22 0900 AC 08/24 PO 0929 Results Last 48 Hrs of Labs/Mics: Laboratory Tests 08/24/17 0619: Anion Gap 7, Estimated GFR 43 L, BUN/Creatinine Ratio 23.3, CBC w Diff NO MAN DIFF REQ, RBC 4.24, MCV 81.6, MCH 27.4, MCHC 33.5, RDW 21.0 H, MPV 9.0, Gran % 77.6 H, Lymphocytes % 8.1 L, Monocytes % 12.3 H, Eosinophils % 1.8, Basophils % 0.2, Absolute Granulocytes 7.3 H, Absolute Lymphocytes 0.8 L, Absolute Monocytes 1.2 H, Absolute Eosinophils 0.2, Absolute Basophils 0 08/23/17 1155: Troponin I 0.07 08/23/17 0622: Anion Gap 9, Estimated GFR 43 L, BUN/Creatinine Ratio 22.5, Magnesium 1.6, Troponin I 0.09, Triglycerides 148, Cholesterol 135, LDL Cholesterol, Calc 73, HDL Cholesterol 33 L, Cholesterol/HDL Ratio 4, CBC w Diff NO MAN DIFF REQ, RBC 4.39, MCV 81.7, MCH 27.2, MCHC 33.3, RDW 19.8 H, MPV 9.4, Gran % 78.0 H, Lymphocytes % 8.2 L, Monocytes % 12.6 H, Eosinophils % 1.0, Basophils % 0.2, Absolute Granulocytes 9.1 H, Absolute Lymphocytes 1.0 L, Absolute Monocytes 1.5 H, Absolute Eosinophils 0.1, Absolute Basophils 0 Assessment/Plan Assessment/Plan Assessment: 1. Right intertrochanteric femur fracture, secondary to mechanical fall-stable postop day 2 2. Abnormal ECG with multi-fascicular block 3. Probable severe underlying pulmonary disease 4. History of moderate tricuspid insufficiency and severe pulmonary hypertension on echocardiogram 2010 5. History of hypertension 6. Chronic renal insufficiency 7. History of severe peripheral arterial disease with multiple stents right lower extremity arterial system 8. Long-standing tobacco use Recommendations: -Echocardiogram shows normal left ventricular function. Moderate tricuspid insufficiency present with severe pulmonary hypertension. Right ventricular systolic pressure greater than 80 mmHg. Right heart enlargement present with hypokinesia of the right ventricular free wall -Out of bed as tolerated -Discharge planning as per orthopedics -The patient would likely benefit from outpatient cardiology follow-up, outpatient pulmonary evaluation, outpatient low-dose screening chest CT for lung cancer, etc. I offered my assistance with outpatient cardiology follow-up. The patient will decide. Continue telemetry? Yes
== END 2017-08-24 13:44 | DRG 481 ==
LOC: ERH 13:15 → 2NB 16:07 → ERHI 16:07 → ENRESERV 16:55 → ENTRNSPT 18:22 → EDTRNSPTSTS 18:30 → EDTRNSPT 18:30 → 2NB 18:56 → CMPTRNSPT 19:20 → ENRESERV 08-22 18:54 → 1NO 08-22 19:19 → ENTRNSPT 08-22 19:51 → EDTRNSPT 08-22 20:04 → EDTRNSPTSTS 08-22 20:04 → EDTRNSPT 08-22 20:05 → CMPTRNSPT 08-22 20:24 → ENPENDDIS 08-24 11:38 → 1NO 08-24 13:44
PROVIDERS: Internal Medicine; Internal Medicine Interventional Cardiology; Physician Assistant Medical; Preventive Medicine Public Health & General Preventive Medicine
PROC: 0QS606Z Reposition Right Upper Femur with Intramedullary Internal Fixation Device, Open Approach (ICD-10-PCS; principal; 2017-08-22)
PROC: 3E0T3BZ Introduction of Anesthetic Agent into Peripheral Nerves and Plexi, Percutaneous Approach (ICD-10-PCS; 2017-08-22)
DX: S72.141A Displaced intertrochanteric fracture of right femur, initial encounter for closed fracture (principal); I13.0 Hypertensive heart and chronic kidney disease with heart failure and stage 1 through stage 4 chronic kidney disease, or unspecified chronic kidney disease; I50.32 Chronic diastolic (congestive) heart failure; I44.69 Other fascicular block; I27.20 Pulmonary hypertension, unspecified; I07.1 Rheumatic tricuspid insufficiency; N18.3 Chronic kidney disease, stage 3 (moderate); J44.9 Chronic obstructive pulmonary disease, unspecified; I73.9 Peripheral vascular disease, unspecified; I45.10 Unspecified right bundle-branch block; Z91.048 Other nonmedicinal substance allergy status; M81.0 Age-related osteoporosis without current pathological fracture; F17.200 Nicotine dependence, unspecified, uncomplicated; W01.0XXA Fall on same level from slipping, tripping and stumbling without subsequent striking against object, initial encounter; Y92.512 Supermarket, store or market as the place of occurrence of the external cause; Z91.041 Radiographic dye allergy status; Z88.8 Allergy status to other drugs, medicaments and biological substances
CPT/HCPCS: 1NSP; 2NBSP; 36415; 36592; 71045; 72170; 73502-RT; 82436; 86860; 86902; 86920; 86922; 87086; 93005; 93010; 93306; 97110-GO; 97116-GO; 97161-GP; 97530-GO; J0131; J1644; J7042